=== PATIENT | female | born 1970 | race Caucasian/White ===

== ENCOUNTER 2019-09-08 09:11 | Outpatient (CLI) | payer OTHER, SELFPAY ==
--- NOTE | ~2019-09-08 | MM_ITS ---
EXAMINATION: MM screening [facility] BI w romi HISTORY: Screening mammogram TECHNIQUE: Craniocaudal and mediolateral oblique 3-D tomosynthesis images were obtained and synthetic 2-D images were generated. CAD analysis was submitted and interpreted. COMPARISON: 01/17/2018, 08/17/2016, 08/17/2014 bilateral digital screening mammogram examinations BREAST PARENCHYMAL COMPOSITION: There are scattered areas of fibroglandular density. FINDINGS: There is no evidence of suspicious mass, calcification, or architectural distortion to sugg est malignancy in either breast. There has been no suspicious interval change. IMPRESSION: 1. No mammographic evidence of malignancy. 2. Recommend routine screening mammography in one year. BI-RADS Category 1: Negative Reviewed, dictated and finalized at location A. OPERATOR
== END 2019-09-08 09:12 | disposition home or self-care (01) ==
PROVIDERS: PCP Family Medicine; Visit Provider Obstetrics & Gynecology
DX: Z12.31 Encounter for screening mammogram for malignant neoplasm of breast (principal)
CPT/HCPCS: 77063; 77067

== ENCOUNTER 2020-12-10 09:23 | Outpatient (CLI) | payer OTHER, SELFPAY ==
--- NOTE | ~2020-12-10 | CT_ITS ---
EXAMINATION: CT abdomen pelvis w con DATE: 12/10/2020 10:09 INDICATION: Ventral hernia TECHNIQUE: Computed tomography (CT) of the abdomen and pelvis was performed with 100 cc Omnipaque 350 intravenous contrast. Automated exposure control and iterative reconstruction technique were employe d. Exam dose: 1412.19 mGy-cm total exam DLP. COMPARISON: None. FINDINGS: Mild discoid atelectasis or scarring at the left lung base. The included lung bases are althea ar of infiltrate or consolidation. Cardiomegaly. No pericardial or pleural effusion. Status post cholecystectomy. No hepatic, splenic, pancreatic, and adrenal or renal space-occupying ma ss lesion is evident. No bile duct or pancreatic duct dilatation. Approximately 2 mm nonobstructing l eft renal calculus; otherwise no urinary tract calculus or hydroureteronephrosis. Abdominal aortic an d iliac calcifications without aneurysm. No intraperitoneal or retroperitoneal or pelvic mass lesion or adenopathy or ascites. The urinary bladder is unremarkable. Status post hysterectomy. Diverticulosis of the sigmoid and descending colon; no CT evidence of diverticulitis. No bowel obstru ction, bowel wall thickening, pneumatosis or intraperitoneal free air. Very wide ventral abdominal wall hernia without strangulation or obstruction. Diffuse idiopathic skeletal hyperostosis of the thoracolumbar spine. No suspicious osteolytic or oste oblastic lesions. IMPRESSION: Large widemouthed ventral abdominal wall hernia without strangulation or obstruction Status post cholecystectomy Approximately 2 mm nonobstructing left renal calculus Status post hysterectomy Reviewed, dictated and finalized at Location A. Reviewed, dictated and finalized at location A. IMPRESSION: Large widemouthed ventral abdominal wall hernia without strangulat ion or obstruction Status post cholecystectomy Approximately 2 mm nonobstructing left renal calculus Status post hysterectomy
[2020-12-10 10:07] LABS: Estimated Glomerular Filt Rate > 60
== END 2020-12-10 09:24 | disposition home or self-care (01) ==
PROVIDERS: PCP Nurse Practitioner Family; Visit Provider Student in an Organized Health Care Education/Training Program
DX: K43.9 Ventral hernia without obstruction or gangrene (principal); N20.0 Calculus of kidney; Z90.710 Acquired absence of both cervix and uterus; Z90.49 Acquired absence of other specified parts of digestive tract
CPT/HCPCS: 74177; Q9967

== ENCOUNTER 2021-01-26 09:02 | Outpatient (CLI) | payer OTHER, SELFPAY ==
--- NOTE | ~2021-01-26 | MM_ITS ---
EXAMINATION: MM screening [facility] BI w romi HISTORY: Screening TECHNIQUE: Craniocaudal and mediolateral oblique 3-D tomosynthesis images were obtained and synthetic 2-D images were generated. CAD analysis was submitted and interpreted. COMPARISON: Comparison to multiple prior studies sequentially, with oldest reviewed study dated 04/07. BREAST PARENCHYMAL COMPOSITION: There are scattered areas of fibroglandular density. FINDINGS: There is no evidence of suspicious mass, calcification, or architectural distortion to sugg est malignancy in either breast. There has been no suspicious interval change. IMPRESSION: 1. No mammographic evidence of malignancy. 2. Recommend routine screening mammography in one year. BI-RADS Category 1: Negative Reviewed, dictated and finalized at location A.
== END 2021-01-26 09:03 | disposition home or self-care (01) ==
LOC: ANHIMG 09:09
PROVIDERS: PCP Nurse Practitioner Family; Visit Provider Student in an Organized Health Care Education/Training Program
DX: Z12.31 Encounter for screening mammogram for malignant neoplasm of breast (principal)
CPT/HCPCS: 77063; 77067

== ENCOUNTER 2024-04-09 09:15 | Outpatient (CLI) | payer OTHER, SELFPAY ==
--- NOTE | 2024-04-09 09:32 | ECG_ITS ---
Test Date: 2024-04-09 09:43:03 Measurements Intervals [place] Rate: 68 P: 61 VA: 169 QRS: 55 QRSD: 108 T: 102 QT: 410 QTc: 438 Interpretive Statements SINUS RHYTHM POSSIBLE ANTERIOR MYOCARDIAL INFARCTION [30 ms Q WAVE IN V3/V4, OR R < 0.2 mV IN V4], PROBABLY OLD No previous ECG available for comparison Electronically Signed On 04-09-2024 12:11:13 CDT by Walt Jacobo M.D.
[2024-04-09 10:10] LABS: Anion Gap 8 mmol/L (4-12); Blood Urea Nitrogen 14 mg/dL (7-17); Calcium 8.7 mg/dL (8.4-10.2); Carbon Dioxide 33 mmol/L (22-30); Chloride 99 mmol/L (98-107); Estimated Glomerular Filt Rate > 60; Glucose 144 mg/dL (65-110); Potassium 3.3 mmol/L (3.4-5.0); Sodium 140 mmol/L (137-145)
== END 2024-04-09 09:16 | disposition home or self-care (01) ==
PROVIDERS: Anesthesiology; PCP Family Medicine; Visit Provider Obstetrics & Gynecology
DX: Z01.818 Encounter for other preprocedural examination (principal); E11.9 Type 2 diabetes mellitus without complications; R10.2 Pelvic and perineal pain
CPT/HCPCS: 36415; 80048; 86850; 86900; 86901; 93005

== ENCOUNTER 2024-04-10 04:31 | Day surgery (SDC) | payer OTHER, SELFPAY ==
[2024-03-31 15:03] VITALS: BMI 39.9
--- NOTE | 2024-03-31 16:08 | PC.NURSE ---
Report to the Outpatient Waiting Room, entrance under the green pavilion located off [facility], at 0600 on 04-10-24. Planned Procedure Time: 0730.? Time changes happen often and if your time is changed the preop area will call you the afternoon before. - You and your visitor will be asked to self-screen and do not enter if you have any COVID symptoms. Please call surgeon if you need to reschedule. - A mask is optional within the hospital at this time. Patients may have clear liquids (water, carbonated beverages, clear teas, apple juice) until 3 hours prior to surgery with a maximum of 20 ounces. 0430 - No food from midnight until time of surgery and no smoking - Infants may have breast milk until 4 hours before surgery, formula 6 hours prior to surgery. - Children will be allowed to drink immediately following surgery.? If applicable, please bring a bottle or sippy cup to assist with drinking. Juice, water, soda, and popsicles are readily available.? For infants on formula, please bring formula the day of surgery.? Pacifiers are allowed. Take only the following medications with a SIP of water on the morning of surgery: None DO NOT STOP ANY OF YOUR OTHER PRESCRIPTION MEDICATIONS PRIOR TO SURGERY EXCEPT THE FOLLOWING Medications to discontinue per physician: vitamins and supplements Date to take last dose: 04-07-24 Please no make-up, nail italian, hairspray, perfume, deodorant, or body powder the day of surgery.? No jewelry (including any body piercings) or valuables the day of surgery, leave them at home.? Please take a shower or bath the night before, or the morning of, surgery with an antibacterial soap.? Wear comfortable, loose fitting clothing.? Children are encouraged to wear pajamas. - Jewelry must be removed prior to entering the operating room.? Rings and piercings that are not removed may be cut off. - The hospital will not accept responsibility for valuables.? - Please leave all valuables, including medications, at home the day of surgery. If you are going home after surgery, a licensed straight truck driver must drive you home.? - NO public transportation without another adult if you receive anesthesia. - We recommend that an adult stay with you for 24 hours following discharge. - We also recommend that you do not drive, make important decision, drink alcoholic beverages, or take any drugs that were not prescribed by your health care provider for at least 24 hours after your discharge time. For Pediatric surgeries, we recommend two adults accompany the child home. Follow any additional instructions given to you from your surgeon. Telephone instructions given to Coty Garcia and asked if any additional questions and then verbalized understanding. Patient advised to call surgeon office or pre surgery nurse liaison [phone] if any additional questions.
--- NOTE | 2024-04-09 07:35 | PM.IMHP ---
H&P: HPI History of Present Illness Date/Time: 04/09/24 07:35 Chief Complaint: Pelvic pain ovarian cyst Narrative: 54-year-old female status post hysterectomy admitted for left salpingo-oophorectomy secondary to severe left-sided pelvic pain. Some an ongoing problem. She is unable to have intercourse finds this to be intolerable. Risks and benefits reviewed including exclusive , aspiration, bleeding, transfusion perforation injury to bowel bladder ureters, or other internal organs with need for laparotomy. She received the [employer] handout entitled laparoscopy. She had all questions answered. She asked [facility] Past Medical History Medical History Arriaga esophagus Diabetes High cholesterol History of blood clots Hypertension Surgical History Surgical History H/O eye surgery H/O ovarian cystectomy H/O: hysterectomy History of cholecystectomy Family History Family History Father , age 72 Diabetes mellitus Acute myocardial infarction Hypertension Mother , age 62 Breast cancer Sibling , age 44 Heart disease Sibling Diabetes mellitus Social History Social History Smoking packs per day: 1 Smoking cigarettes per day: 20.0 Years smoked: 25 Smoking pack-years: 25.00 Smoking status: Former smoker Tobacco type: cigarettes Second hand tobacco smoke exposure: No Smoking end date: 07/08/11 Alcohol intake: never Substance use: never Substance use type: does not use Living arrangements: with family Occupation/Education: unemployed Spiritual care concerns: No Meds Home Medications and Allergies Home Medications Medication Instructions Recorded Confirmed Type atorvastatin 10 mg tablet 40 mg PO DAILY 12/28/20 03/31/24 History latanoprost 0.005 % eye drops 1 drp EACH EYE DAILY 12/28/20 03/31/24 History metformin 500 mg tablet 500 mg PO BID 12/28/20 03/31/24 History vitamins A,C,I-wvda-incibo 4,296 1 cap PO BID 12/28/20 03/31/24 History mcg-226 mg-90 mg capsule (PreserVision AREDS) amitriptyline 25 mg tablet 50 mg PO HS 03/31/24 03/31/24 History docusate sodium 100 mg capsule 200 mg PO DAILY 03/31/24 03/31/24 History (Colace) omeprazole 40 mg capsule,delayed 40 mg PO DAILY 03/31/24 03/31/24 History release valsartan 320 mg tablet 320 mg PO DAILY 03/31/24 03/31/24 History Allergies Allergy/AdvReac Type Severity Reaction Status Date / Time codeine Allergy Severe TONGUE Verified 03/31/24 14:53 SWELLING/NAUSEA lisinopril Allergy Intermediate Cough Verified 03/31/24 14:53 adhesive Allergy Mild RASH Verified 03/31/24 14:53 erythromycin base Allergy Mild Swelling Verified 03/31/24 14:53 ibuprofen AdvReac Mild STOMACH Verified 03/31/24 16:18 PAIN Exam Const: General: cooperative, healthy appearing, comfortable and overweight Orientation/consciousness: oriented to person, oriented to place and oriented to time HENMT: Head: normal to inspection Resp: Effort & Inspection: normal respiratory effort Cardio: Rate: regular rate Rhythm: regular rhythm Heart sounds: S1 normal heart sound present and S2 normal heart sound present GI: Inspection: normal to inspection : External Female Exam: normal external appearance Speculum Exam - Vagina: normal appearance of the vagina Speculum Exam - Cervix: Cervix absent Bimanual exam- vagina & uterus: uterus absent Bimanual Exam- Adnexa, other: tender on the left Assessment and Plan Assessment and plan (1) Pelvic pain: Code(s): R10.2 - Pelvic and perineal pain Status: Acute Assessment and Plan: Proceed with laparoscopic left salpingo-oophorectomy
[2024-04-10 06:14] VITALS: BP 156/87; PULSE 69; RESP 18; TEMP 36.2; O2SAT 97
[2024-04-10] MEDS: ACETAMINOPHEN 500 MG TABLET 1000 MG PO (06:20)
[2024-04-10] MEDS: LACTATED RINGERS 1,000 ML 30 ML IV CONT (06:25)
[2024-04-10 06:30] LABS: Glucose Point of Care 107 mg/dl (65-105)
--- NOTE | 2024-04-10 06:56 | WPDHPUPDATE1 ---
History and Physical Update Update Date/Time: 04/10/24 06:56 History and Physical has been reviewed, including an updated exam of the patient. There are NO changes in the patient's condition. Risks, benefits, and alternatives have been discussed and questions answered. Patient agrees to proceed with procedure.
--- NOTE | 2024-04-10 07:14 | WPDHPUPDATE1 ---
History and Physical Update Update Date/Time: 04/10/24 07:14 History and Physical has been reviewed, including an updated exam of the patient. There are NO changes in the patient's condition. Risks, benefits, and alternatives have been discussed and questions answered. Patient agrees to proceed with procedure. case cancelled . await cardiac workup
== END 2024-04-10 07:25 | disposition home or self-care (01) ==
PROVIDERS: PCP Family Medicine; Visit Provider Obstetrics & Gynecology
PROC: (CPT 49320; principal; 2024-04-10 07:30)
DX: R10.2 Pelvic and perineal pain (principal); I10 Essential (primary) hypertension; E11.9 Type 2 diabetes mellitus without complications; E78.00 Pure hypercholesterolemia, unspecified; K22.70 Barrett's esophagus without dysplasia; Z53.9 Procedure and treatment not carried out, unspecified reason; Z79.84 Long term (current) use of oral hypoglycemic drugs; Z98.890 Other specified postprocedural states; Z90.49 Acquired absence of other specified parts of digestive tract; Z87.891 Personal history of nicotine dependence; Z80.3 Family history of malignant neoplasm of breast; Z82.49 Family history of ischemic heart disease and other diseases of the circulatory system
CPT/HCPCS: 82948; 99213; A9270; G0463; J7030; J7120

== ENCOUNTER 2024-10-24 10:54 | Outpatient (CLI) | payer OTHER, SELFPAY ==
--- NOTE | ~2024-10-24 | MM_ITS ---
EXAMINATION: MM screening [facility] BI w romi HISTORY: Screening TECHNIQUE: Craniocaudal and mediolateral oblique 3-D tomosynthesis images were obtained and synthetic 2-D images were generated. CAD analysis was submitted and interpreted. COMPARISON: 01/26/2021 and dating back to 08/17/2016 BREAST PARENCHYMAL COMPOSITION: The breasts are heterogeneously dense, which may obscure small masses . FINDINGS: Redemonstration of an intramammary lymph node within the upper outer quadrant of the right breast, stable and benign in appearance. Punctate calcifications detected bilaterally, stable and benign in appearance, dermal in origin. Stable parenchymal pattern without suspicious microcalcifications, architectural distortion, discrete masses or significant asymmetry. IMPRESSION: 1. No mammographic evidence of malignancy. 2. Recommend routine screening mammography in one year. BI-RADS Category 2: Benign finding(s). Reviewed, dictated and finalized at location A.
== END 2024-10-24 10:55 | disposition home or self-care (01) ==
PROVIDERS: PCP Obstetrics & Gynecology; Visit Provider Obstetrics & Gynecology
DX: Z12.31 Encounter for screening mammogram for malignant neoplasm of breast (principal)
CPT/HCPCS: 77063; 77067

== ENCOUNTER 2025-04-29 08:04 | Outpatient (CLI) | payer OTHER, SELFPAY ==
--- OUTSIDE RECORDS SUMMARY | 2025-04-07 11:30 | XMS_ITS | Encounter Summary ---
Author Organization [facility] Address [address] [place] [address] Phone Care Team Providers Care Principal Technical Specialist Name Role Phone Renu Scott MD Primary Care Provide r Reason for Visit * Reason Comments Stress/Nightmares * Behavioral Health (Routine) - Authorized Specialty Diagnoses / Procedures Referred By Reji morales Referred To Contact Licensed Clinical Mash Filter Operator / Behavioral Health Diagnoses Stress Procedures INDIVIDUAL THERAPY 45 Farzaneh De La Cruz LCSW [address] [place] [address] Phone: tel: fax: Referral ID Status Reason Start Date Expiration Date V isits Requested Visits Authorized [id number] Authorized 50 50 Encounter Details Date Type Department Care Team (Latest Contact Info) Description 04/07/2025 11:30 AM CDT Outpatient [facility] [address] [place] [address] Farzaneh De La Cruz PORCELAIN BUILDUP ASSISTANT [address] [place] [address] Grief (Primary Dx); Major depressive disorder, recurrent episode, severe with anxious distress Discharge Disposition: Discharged to home or Selfcare Social History Tobacco Use Types Packs/Day Years Used Date Smoking Tobacco: Never Smokeless Tobacco: Never Alcohol Use Standard Drinks/Week Comments No 0 (1 standard drink = 0.6 oz pur e alcohol) Sexually Active Control Partners Comments Yes Male Comments Unknown Sex and Gender Information Value Date Recorded Sex Assigned at Not on file Legal Sex Female 10:39 PM CDT Gender Identity Not on file Sexual Orientation Not on file documented as of this encounter Patient Instructions * Patient Instructions* Farzaneh De La Cruz, PORCELAIN BUILDUP ASSISTANT - 04/07/2025 11:30 AM CDT Crisis Resources In-Home, Mental Health Crisis Assessment [facility] Crisis Intervention Team?[phone] ([place]) [facility] Crisis Intervention Team?.. [phone] ([place]) [facility] Available for individual, family, or friend for in-home assessment of mental health issues Crisis Stabilization- Residential 24-hour or short-term supervised care at a facility. Available for persons 18 and older, who are experiencing a mental health crisis and do not need hospitalization. [facility] provides 24-hour short-term supervised care for persons aged 18 years and older experiencing an acute psychiatric crisis that does not require hospitalization. The average length of stay is 14 days. Admission to our crisis unit is voluntary; we only accept those individuals who choose to come to the unit. The facility is not prepared to work with persons who may be acutely suicidal or homicidal or who are experiencing serious medical problems or complications. The unit is staffed with nurses and behavioral health technicians and is not a hospital. During their stay on the unit, clients spend time in groups that meet four or more times a day. Thegroups provide education on topics helpful to individuals in crisis and clients are expected to attend and to participate actively. [facility] will provide a safe and supportive environment conducive to achieving stability. No alcohol or drugs are allowed in the unit. All medications are dispensed by [facility] nurses at appropriate times. No visitors are allowed on the unit but there is a phone available for clients to use and make calls. Persons may refer themselves for crisis residential/stabilization services and may be referred by hospitals, police departments, mental health agencies, social service agencies, and families. [facility] ?.....? .[phone] [facility] ?.???..[phone] Brief Crisis Phone Counseling Behavioral Health Response (BHR)?[phone] / [phone] ([facility] (Medicaid patients) ?..[phone] If non-Medicaid patient, the caller will be referred to a local service provider Emergency Sites for Mental Health Assessment and Treatment Behavioral Health Urgent Care [facility] (5yrs old to adult) [address] [address] Saturday - Saturday 9:00 am - 7:00 pm *Last patient seen at 6:00 pm Hospitals with Inpatient Psychological Services for Children and/or Adolescents and Adults [facility] (also has substance use treatment for adults) (adolescent, adult) [facility] [place] [address] [facility] (children, adolescents, adult) after business hours [phone] [address]. [facility] (children, adolescents, adult) [address] [place] [address] [facility] (also has substance use treatment for adults) (children, adolescents, adult) Phone: or [phone] [address] [place] [address] [facility] (adolescent, adult) Phone: or [phone] [address] [place] [address] Hospitals with Inpatient Psychological Services for Adults only [facility] (adult, geriatric) [address] [place] [address] [facility] (adult) [address] [place] [address] [facility] (adult) Phone: or [phone] [address] [place] [address] [facility] (geriatric only) Phone: or [phone] [address] [place] [address] [facility] (adult, geriatric) [address] [place], [place] Hotline [facility] Suicide Prevention Hotline: ?..?.3-203-436-TALK (3241) or [address] Sexual Assault Hotline?..?.?8-143-439-ROSCOMMON (6433) [facility] Sexual Assault Victims Support?..1-789.435.3402 [facility] Child Abuse Hotline?.1-744.881.7206 Domestic Violence Hotline?.?.4-242-597-S AFE (5266) [facility] Lifeline?.? Trans Lifeline?.? LGBTQ Partner Abuse & Sexual Assault Line . .1- 145.456.4279 [facility] including support for opioids or other substances.? Crisis Text Line???..?.?.? Text the word help to 270267 [facility] Text Line for service referrals.?.?. Text the word help to 877413 Warm Lines [facility]?1-623-032-79 [address] [place] [address] Warmline? 9a-9p/7 days a week [facility] Warmline?..2-400-224-2282 documented in this encounter Progress Notes * Farzaneh De La Cruz LCSW - 04/07/2025 11:30 AM CDT Images from the original note were not included. [facility] BEHAVIORAL HEALTH CLINICAL PROGRESS NOTE NAME: Coty Garcia AGE: 55 y.o. DATE OF : 1970 DATE OF SERVICE: 04/07/2025 START TIME: 11:30 am END TIME: 12:00 pm DIAGNOSIS: 1. Grief 2. Major depressive disorder, recurrent episode, severe with anxious distress Coty is a 53 year old female who has seen this clinician before for anxiety and depression. Coty recently lost her son, Terrence, to cancer right before 2022. Coty has a lot of feelings of guilt and feelings of what ifs. Coty also lost her brother in 2022 as well as a sister in law and a niece. The family has had two other losses on her 's side of the family. Her grandson who is 13 (her son's son) stays with them often and Coty worries about his emotional wellbeing. Coty has a history of anxiety and depression for which she has been treated through counseling, but currently has been prescribed amitriptyline. She has health issues which also may contribute to her stress and agitate the symptoms of grief. Today Coty processed thoughts and feelings related to: Grief Grandson Nightmares and waking with panic for about 1 month Reviewed the benefits of journaling. Clinician utilized person centered approach (active/reflective listening, summarization, open endedquestions, unconditional positive regard) to encourage pt disclosure of thoughts and feelings for insight building, to gain relief from distressing thoughts and feelings and to strengthen therapeuticrapport. TREATMENT PLAN: Goals Addressed This Visit's Progress Behavioral Health I want to be able to deal with Terrence's . (pt-stated) Improving Goal/Objective: Improve coping with grief related to the of Coty's son. Anticipated Time Frame for Goal Completion: 6 months Goal Reviewed with: patient Readiness to change: Ready to change Department associated with goal: [facility] Steps to achieve goal: 1. will attend at least 6 counseling sessions either individual and/or group 1x/mo, engaging in each session by verbalizing and processing thoughts and feelings related to grief and loss. 2. will report reduced feelings of guilt and resentment. 3. will identify and implement at least two outlets for grief and or coping skills to aid in managing problematic responses to grief. PROBLEM STATUS: Coty was seen today due to the following concerns: Depression: concentration difficulties decreased participation in activities of daily living emotionality (anger, crying, irritability) fatigue/loss of energy loss of interest/pleasure in activities low self esteem/self image mood regulation difficulties negative automatic thoughts/intrusive thoughts sleep difficulties (too much or too little) .. Grief Tearfulness Feelings of guilt Based upon the presenting problem the following treatment modalities were utilized: Cognitive Behavioral Therapy Supportive/Client Centered Therapy THERAPEUTIC INTERVENTIONS USED: This clinician provided therapeutic interventions for: Depression: increasing insight into current difficulties identifying and decreasing cognitive distortions/negative automatic thoughts contributing negatively to depressed mood and behavior identifying exercise/physical activity to be implemented at home identifying, verbalizing, and processing feelings effectively implementing strategies to improve self esteem/self worth increasing daily socialization and engagement in pleasant/pleasurable activities increasing knowledge and awareness of emotions/emotional functioning increasing nutrition education and altering daily diet learning positive coping skills and utilizing them at appropriate times/when needed consistent medication adherence. Grief education Life review Coty verbalized an understanding and responded well to interventions provided during treatment session. PROGRESS TOWARDS GOALS: Coty reported improvement of symptoms. MENTAL STATUS EXAM: Coty is open spontaneous. Affect is mood congruent. Mood is sad. Grieving but less emotional There is no history of suicidal ideation.. There is no history of homicidal ideation.. FUNCTIONAL ASSESSMENT: Can the patient perform Activities of Daily Living (ADL'S)?: Patient is able to complete ADL's independantly. TREATMENT RECOMMENDATIONS/FOLLOW UP: Recommendations for follow up treatment plan: Return for next available follow up appointment. FARZANEH DE LA CRUZ LCSW documented in this encounter Plan of Treatment Upcoming Encounters Date Type Department Care Team (Late st Contact Info) Description 04/29/2025 2:45 PM CDT Outpatient Clinic Visit [facility] Health Services [address] [place] [address] Farzaneh De La Cruz LCSW [address] [place] [address] documented as of this encounter Goals Goal Patient Goal Type Associated Problems Recent Progress Patient-Stated? Author I want to be able to deal with Terrence's . Behavioral Health Improving(07/2024 11:39 AM CDT) Yes Farzaneh De La Cruz LCSW Note: Goal/Objective: Improve coping with grief related to the of Coty's son. Anticipated Time Frame for Goal Completion: 6 months Goal Reviewed with: patient Readiness to change: Ready to change Department associated with goal: [facility] Steps to achieve goal: 1. will attend at least 6 counseling sessions either individual and/or group 1x/mo, engaging in each session by verbalizing and processing thoughts and feelings related to grief and loss. 2. will report reduced feelings of guilt and resentment. 3. will identify and implement at least two outlets for grief and or coping skills to aid in managing problematic responses to grief. documented as of this encounter Visit Diagnoses Diagnosis Grief- Primary Adjustment disorder with depressed mood Major depressive disorder, recurrent episode, severe with anxious distress documented in this encounter Care Teams Principal Technical Specialist Relationship Specialty Start Date End Date Renu Scott MD 2 [facility] [address] [address] PCP - General Family Medicine 12/16/23 documented as of this encounter
--- OUTSIDE RECORDS SUMMARY | 2025-04-08 08:06 | XMS_ITS | Encounter Summary ---
Author Organization [facility] Address [address] [place] [address] Care Team Providers Care Lawyers Name Role Phone Aldo Kan MD Unavailable [phone] Elo Mcmahan NP Unavailable [phone] Renu Scott MD Primary Care Provide r Reason for Visit * Reason Onset Date Comments Medical Question/Miscellaneous 03/29/2025 Call Back 03/29/2025 Encounter Details Date Type Department Care Team (Late st Contact Info) Description 03/29/2025 Telephone [facility] Primary Care at [address] [place] [address] Renu Scott MD [address] [place] [address] [address] [place] [address] Medical Question/Miscellaneous ; Call Back Social History Tobacco Use Types Packs/Day Years Used Date Smoking Tobacco: Former Cigarettes 1 32 0 07/08/1981 - 07/07/2013 Passive Smoke Exposure: Past Smokeless Tobacco: Never Comments:Smoking History Pac ks/day: 1 Packs Alcohol Use Standard Drinks/Week Comments No 0 (1 standard drink = 0.6 oz pur e alcohol) PHQ-2 Answer Date Recorded PHQ-2 Total Score (If total score is 3 or more points, staff should administer the PHQ-9) 0 01/27/2025 AUDIT-C Answer Date Recorded Frequency of Alcohol Consumption Not on file 03/01/2025 Q2: How many drinks containi ng alcohol do you have on a typical day when you are drinking? Patient does not drink Frequency of Binge Drinking Not on file 02/06 Personal Safety Answer Date Recorded Have you ever been in or are you currently in a harmful physical or emotional relationship or is someone making you feel afraid or unsafe? Denies 03/03/2025 Comments No Sex and Gender Information Value Date Recorded Sex Assigned at Not on file Legal Sex Female 8:50 AM PR MANAGER Gender Identity Not on file Sexual Orientation Not on file documented as of this encounter Ordered Prescriptions Prescription Sig Dispense Quantity Refills Last Filled Start Date End Date melatonin 5 mg tablet Take 1 tablet (5 mg total) by mouth nightly for 5 days 5 tablet 03/31/2025 documented in this encounter Miscellaneous Notes * Telephone Encounter - Gracie Quarles MA - 03/31/2025 2:33 PM CDT Coty has been informed. * Telephone Encounter - Renu Scott MD - 03/31/2025 2:27 PM CDT I sent 5 tablets. It would be safe to try one a few nights before the sleep study to see if it works. * Telephone Encounter - Ina Lopez - 03/31/2025 11:23 AM CDT Call Back Caller???s Concern: Patient called back returning call. Relayed provider message and patient statesshe will try melatonin. Please advise Does message need to be routed? Yes-Action Needed * Telephone Encounter - Gracie Quarles MA - 03/31/2025 7:25 AM CDT Attempted to contact Coty with no answer. LMOM to contact the office back. If Coty calls back, please relay message from Dr. Alva * Telephone Encounter - Renu Scott MD - 03/30/2025 1:37 PM CDT Many sleep aids can lower the drive to breath and she is already going for a sleep study to assess for pauses in her sleep. Would she like to give melatonin a try? Or does she want to take the risk of something stronger such as a one time tablet of ambien? * Telephone Encounter - Terri Jones - 03/29/2025 1:10 PM CDT Medical Question/Miscellaneous Caller???s Concern: Patient has a sleep study on 04/08/25 and has trouble sleeping if she's not in her own bed, she was told to call and ask her PCP for a one time sleep medication to take for that night. Please advise. [id number] [place], [place] - [address] [facility] [phone] Does message need to be routed? Yes-Action Needed documented in this encounter Plan of Treatment Not on file documented as of this encounter Visit Diagnoses Not on filedocumented in this encounter Care Teams Lawyers Relationship Specialty Start Date End Date Renu Scott MD 2 [facility] [address] [address] PCP - General Family Medicine 11/26/23 Aldo Kan MD Consulting Physician Cardiology 10/09/17 Elo Mcmahan NP Registered Nurse Pulmonary Disease 12/13/21 documented as of this encounter
--- OUTSIDE RECORDS SUMMARY | 2025-04-08 08:06 | XMS_ITS | Encounter Summary ---
Author Organization [facility] Care Team Providers Care Produce Team Lead Name Role Phone Renu Scott MD Primary Care Provide r Encounter Details Date Type Department Care Team (Latest Contact Info) Description 04/07/2025 Travel Social History Tobacco Use Types Packs/Day Years [...] on file documented as of this encounter Plan of Treatment Upcoming Encounters Date Type Department Care Team (Late st Contact Info) Description 04/29/2025 2:45 PM CDT Outpatient Clinic Visit [facility] Health Services [address] [place] [address] Jennifer Galdamez LCSW [address] [place] [address] documented as of this encounter Goals Goal Patient Goal Type Associated Problems Recent Progress Patient-Stated? Author I want to be able to deal with Terrence's . Behavioral Health Improving(07/2024 11:39 AM CDT) Yes Jennifer Galdamez LCSW Note: Goal/Objective: Improve coping with grief related to the of Coty's son. Anticipated Time Frame for Goal Completion: 6 months Goal Reviewed with: patient Readiness to change: Ready to change Department associated with goal: [facility] Steps to achieve goal: [...] on filedocumented in this encounter Care Teams Produce Team Lead Relationship Specialty Start Date End Date Renu Scott MD [address] [place] [address] DR [address] [place], [place] [address], [place] [address] PCP - General Family Medicine 12/16/23 documented as of this encounter
--- OUTSIDE RECORDS SUMMARY | 2025-04-08 08:06 | XMS_ITS | Clinical Summary ---
Author Organization [facility] Address [address] [place] [address] Phone Care Team Providers Care Cray Fishing Hand Name Role Phone Renu Scott MD Primary Care Provide r Medications amitriptyline (ELAVIL) 25 MG Tablet Take 25 mg by mouth nightly. Active Active Problems Problem Noted Date Diagnosed Date Grief 08/27/2023 Major depressive disorder, r ecurrent episode, severe with anxious distress 01/27/2018 Encounters Date Type Department Care Team Description 04/07/2025 11:30 AM CDT Outpatient Clinic Visit [facility] Services [address] [place] [address] Jennifer Galdamez LCSW Grief (Primary Dx); Major depressive disorder, recurrent episode, severe with anxious distress Discharge Disposition: Discharged to home or Selfcare 04/07/2025 Travel from Last 3 Months Family History Medical History Relation Name Comments Heart Attack Brother x3-1 Relation Name Status Comments Brother x3-1 Father Mother Social History Tobacco Use Types Packs/Day Years Used Date Smoking Tobacco: Never Smokeless Tobacco: Never Tobacco Cessation:Counseling Given: Not Answered Alcohol Use Standard Drinks/Week Comments No 0 (1 standard drink = 0.6 oz pur e alcohol) Sexually Active Control Partners Comments Yes Male Comments Unknown Sex and Gender Information Value Date Recorded Sex Assigned at Not on file Legal Sex Female 10:39 PM CDT Gender Identity Not on file Sexual Orientation Not on file Plan of Treatment Upcoming Encounters Date Type Department Care Team (Late st Contact Info) Description 04/29/2025 2:45 PM CDT Outpatient Clinic Visit [facility] [address] [place] [address] Jennifer Galdamez LCSW [address] [place] [address] Health Maintenance Due Date Last Done Comments Hepatitis C Virus (HCV) Screening 1970 Mammogram 1970 Hepatitis B Immunization (1 of 3 - 19+ 3-dose series) 01/05/1988 Pap Smear 1990 Cervical Cancer Screening (CCS) 1999 HPV/Cotest 1999 Cologuard 2014 Immunochemical Fecal Occult Blood 2014 Pneumococcal Immunization (5 0+ years) (1 of 1 - PCV) 2019 Zoster Immunization (1 of 2) 2019 Influenza Immunization (#1) 2025 SARS-COV-2 Immunization ( - season) 2025 Colonoscopy 04/12/2030 04/12/2020 Colorectal Cancer Screening 04/12/2030 Respiratory Syncytial Virus (RSV) Immunization (Adult) (1 - 1-dose 75+ series) 01/05/2044 DTaP/Tdap/Td Immunization Discontinued 2018, 12/29/2008 TdaP Immunization Completed 02/23/2019, 12/29/2008 Human Papillomavirus (HPV) Immunization Aged Out No longer eligible based on patient's age to complete this topic Meningococcal Immunization (ACWY) Aged Out No longer eligible based on patient's age to complete this topic Rotavirus Immunization Aged Out No lo nger eligible based on patient's age to complete this topic Goals Goal Patient Goal Type Associated Problems [...] Ready to change Department associated with goal: [facility] Steps to achieve goal: [...] aid in managing problematic responses to grief. Insurance [facility] Care Teams Cray Fishing Hand Relationship Specialty Start Date End Date Renu Scott MD [address] [facility] [place] [address] PCP - General Family Medicine 12/16/23
--- OUTSIDE RECORDS SUMMARY | 2025-04-08 08:06 | XMS_ITS | Clinical Summary ---
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 changed her vitamin-D. She has follow-up with Dr. Reynolds in 6 weeks. Recommended that she bring up pain with him Assessment & Plan (01/11/2020 11:18 AM CDT): Labs ordered, new Rx sent, use as directed. Go to nearest ER if S/Sxs worsen. Martha for colonoscopy at end of month, keep martha appt. Assessment & Plan (01/31/2017 8:20 AM CDT): She has a hx of srinivasan's esophagitis. She has chronic abdominal bloating and pain. She already sees GI and is due to see him. I told her she needs to discuss with her GI doctor. Diabetic polyneuropathy 02/03/2014 Overview (10/11/2016): Diabetic polyneuropathy Assessment & Plan (12/28/2021 1:52 PM CDT): referr placed to podiatry for eval Otherwise continue current regimen - can consider starting gabapentin Assessment & Plan (01/17/2018 1:26 PM CDT): Diabetes is unchanged. Continue current treatment regimen. Diabetes will be reassessed in 6 months. Has neuropathy in feet and hands Last A1C October 2017-6.3 Continue Metformin Type 2 diabetes mellitus wit hout complication, without long-term current use of insulin 11/21/2013 Overview (10/11/2016): Diabetes Assessment & Plan (01/27/2025 2:26 PM CDT): The patient was counseled on a heart-healthy, diabetic-friendly diet, as well as life-style modification. Education provided on the diagnosis and risks of the disease. We will continue to monitor routine labs. Additionally, She was counseled on routine diabetic eye exams, foot exams, and other preventive care. Most recent A1c on file: Lab Results Component Value Date HGBA1C 6.3 (H) 01/20/2025 Continue regimen of metformin 500mg bid Mounjaro 0.5mg weekly Continue statin and ARB Orders: Hemoglobin A1c; Future Albumin Creatinine Ratio, Urine; Future Assessment & Plan (11/09/2024 11:03 AM CDT): The patient was counseled on a heart-healthy, diabetic-friendly diet, as well as life-style modification. Education provided on the diagnosis and risks of the disease. We will continue to monitor routine labs. Additionally, She was counseled on routine diabetic eye exams, foot exams, and other preventive care. Most recent A1c on file: Lab Results Component Value Date HGBA1C 6.7 (H) 11/05/2024 Continue regimen of metformin 500mg bid Mounjaro added to help with DM and weight loss Continue statin and ARB Assessment & Plan (09/21/2024 3:02 PM CDT): The patient was counseled on a heart-healthy, diabetic-friendly diet, as well as life-style modification. Education provided on the diagnosis and risks of the disease. We will continue to monitor routine labs. Additionally, She was counseled on routine diabetic eye exams, foot exams, and other preventive care. Most recent A1c on file: Lab Results Component Value Date HGBA1C 6.6 (H) 05/29/2024 Continue regimen of metformin 500mg bid Continue statin and ARB A1c ordered today F/u in 6 months Assessment & Plan (06/06/2024 7:33 PM ROTARY SOIL STABILIZER OPERATOR): The patient was counseled on a heart-healthy, diabetic-friendly diet, as well as life-style modification. Education provided on the diagnosis and risks of the disease. We will continue to monitor routine labs. Additionally, She was counseled on routine diabetic eye exams, foot exams, and other preventive care. Most recent A1c on file: Lab Results Component Value Date HGBA1C 6.6 (H) 05/29/2024 Continue regimen of metformin 500mg bid Continue statin and ARB A1c ordered today F/u in 6 months Assessment & Plan (11/26/2023 2:34 PM CDT): The patient was counseled on a heart-healthy, diabetic-friendly diet, as well as life-style modification. Education provided on the diagnosis and risks of the disease. We will continue to monitor routine labs. Additionally, She was counseled on routine diabetic eye exams, foot exams, and other preventive care. Most recent A1c on file: Lab Results Component Value Date HGBA1C 5.9 (H) 10/30/2022 Continue regimen of metformin 500mg bid Continue statin and ARB A1c ordered today F/u in 6 months Assessment & Plan (05/27/2023 1:27 PM ROTARY SOIL STABILIZER OPERATOR): Improved. Pt is on metformin xr 500mg daily. Today A1c was 6.1%. Assessment & Plan (09/30/2022 2:34 PM CDT): Diabetes has been stable. A1cs have been in the 60s. Will have her check labs and reschedule her office visit that she had regularly scheduled next week for 2-3 weeks out for recheck on chronic conditions Assessment & Plan (02/04/2022 11:31 AM CDT): Stable. Reviewed labs. Renewed metformin. F/u 6 months Assessment & Plan (01/16/2022 10:16 AM CDT): Due for lab work. Continue metformin. Encouraged exercise low carb diet Assessment & Plan (12/13/2021 3:51 PM CDT): Stable, well controlle d- cotninue follow up with endo Assessment & Plan (10/11/2021 10:31 AM CDT): Chronic for about 10 years. In good control with A1c of 6.1% on Metformin Plan: Patient to work on weight loss Continue Metformin Check A1c every 3-6 month and try to keep < 7% Assessment & Plan (09/27/2021 8:20 AM CDT): Will refer to endocrinology. Has been controlled. Assessment & Plan (07/05/2021 12:11 PM ROTARY SOIL STABILIZER OPERATOR): Diabetes has been stable. Recheck hemoglobin A1c today. Assessment & Plan (01/03/2021 11:06 AM CDT): Stable. Hemoglobin A1c is 6.2%. Continue on metformin. Encouraged low carb diet and exercise Assessment & Plan (12/01/2020 5:20 PM CDT): Due for lab work prior to office visit end of December. Assessment & Plan (08/04/2020 11:16 AM ROTARY SOIL STABILIZER OPERATOR): Diabetes is stable. Continue current treatment regimen. Dietary recommendations for ADA diet. Regular aerobic exercise. Reminded to get yearly retinal exam. Diabetes will be reassessed in 6 months Orders for repeat hga1c today. Assessment & Plan (02/04/2020 9:48 AM CDT): Diabetes is improving with lifestyle modifications. Discussed foot care. Reminded to get yearly retinal exam. Medication changes per orders. Diabetes will be reassessed in 6 months Has decreased metformin to 500mg daily. Assessment & Plan (01/11/2020 11:19 AM CDT): Well-controlled, cut back on metformin 500mg bid, decreased to 500mg qhs. Notify provider if this has helped with the generalized abd. Pain/discomfort and your upcoming appt. Low carbs diet recommended. Assessment & Plan (08/06/2019 11:19 AM ROTARY SOIL STABILIZER OPERATOR): Diabetes is unchanged. Continue current treatment regimen. Dietary recommendations for ADA diet. Regular aerobic exercise. Reminded to get yearly retinal exam. Diabetes will be reassessed in 6 months. Assessment & Plan (02/03/2019 11:15 AM CDT): Issues reviewed with her: low cholesterol diet, weight control and daily exercise discussed, home glucose monitoring emphasized, annual eye examinations at Ophthalmology discussed and glycohemoglobin and other lab monitoring discussed Currently controlled. Continue metformin. . Assessment & Plan (08/05/2018 11:47 AM ROTARY SOIL STABILIZER OPERATOR): Diabetes is improving with treatment. Continue current treatment regimen. Diabetes will be reassessed in 6 months. Assessment & Plan (06/14/2018 12:38 PM ROTARY SOIL STABILIZER OPERATOR): Diabetes is improving with treatment. Continue current treatment regimen. Diabetes will be reassessed in 3 months. Will check A1C Pt. Reports neuropathy improving Reports fasting blood sugars in 90-100's Continue Metformin 500 mg twice a day Assessment & Plan (01/27/2018 9:18 AM CDT): Diabetes is improving with treatment. Continue current treatment regimen. Regular aerobic exercise. Diabetes will be reassessed in 6 months Repeat hga1c and microalbumin today. Assessment & Plan (10/15/2017 9:00 AM CDT): Last hga1c was 6.1%. Continue metformin. Will recheck hga1c today. She has f/u in December Assessment & Plan (10/04/2017 6:01 PM CDT): The blood sugar is controlled. Continue current regimen for now Assessment & Plan (07/18/2017 12:11 PM ROTARY SOIL STABILIZER OPERATOR): Diabetes is improving with treatment. Continue current treatment regimen. Dietary recommendations for ADA diet. Regular aerobic exercise. Discussed foot care. Diabetes will be reassessed in 6 months. Assessment & Plan (01/31/2017 8:18 AM CDT): Diabetes is stable. Continue current treatment regimen. Reminded to bring in blood sugar diary at next visit. Regular aerobic exercise. Diabetes will be reassessed in 6 months. Class 3 severe obesity due t o excess calories with serious comorbidity and body mass index (BMI) of 40.0 to 44.9 in adult 11/21/2013 Overview (01/11/2020): Assessment & Plan (01/27/2025 2:26 PM CDT): Assessment & Plan (11/05/2024 9:54 PM CDT): She was counseled on the importance of maintaining a healthy weight and the risks of obesity. Weight loss recommended. Encourage 150min/ week of exercise Encourage 1500 calories in a day for weight loss Assessment & Plan (09/21/2024 4:53 PM CDT): She was counseled on the importance of maintaining a healthy weight and the risks of obesity. Weight loss recommended. Assessment & Plan (06/08/2024 3:11 PM ROTARY SOIL STABILIZER OPERATOR): She was counseled on the importance of maintaining a healthy weight and the risks of obesity. Weight loss recommended. Assessment & Plan (11/26/2023 4:10 PM CDT): She was counseled on the importance of maintaining a healthy weight and the risks of obesity. Weight loss recommended. Assessment & Plan (02/16/2022 8:51 AM CDT): BMI Follow-up includes: exercise counseling. Assessment & Plan (02/08/2022 2:24 PM CDT): Healthy, low carbohydrate lifestyle and exercise for 150min/week recommended Assessment & Plan (02/04/2022 11:28 AM CDT): BMI Follow-up includes: education provided. Assessment & Plan (01/16/2022 10:21 AM CDT): BMI Follow-up includes: exercise counseling. Assessment & Plan (12/28/2021 1:51 PM CDT): BMI Follow-up includes: nutrition counseling and exercise counseling. Assessment & Plan (12/13/2021 3:51 PM CDT): BMI Follow-up includes: nutrition counseling and exercise counseling. Assessment & Plan (09/27/2021 8:35 AM CDT): BMI Follow-up includes: exercise counseling. Assessment & Plan (01/03/2021 11:06 AM CDT): BMI Follow-up includes: nutrition counseling and exercise counseling. Assessment & Plan (12/01/2020 5:19 PM CDT): BMI Follow-up includes: exercise counseling. Assessment & Plan (08/10/2020 6:00 PM ROTARY SOIL STABILIZER OPERATOR): This issues definitely adding to the patient the complaints and symptoms the. She will definitely benefit from aggressive approach for weight loss. Assessment & Plan (01/15/2020 1:03 PM CDT): Healthy, low carbohydrate lifestyle and exercise for 150min/week recommended Assessment & Plan (01/11/2020 11:19 AM CDT): Weight reduction, daily exercise and dietary modifications recommended. Assessment & Plan (08/06/2019 11:20 AM ROTARY SOIL STABILIZER OPERATOR): BMI Follow-up includes: exercise counseling. Assessment & Plan (07/18/2017 12:12 PM ROTARY SOIL STABILIZER OPERATOR): BMI Follow-up includes: nutrition counseling and exercise counseling. Assessment & Plan (01/31/2017 8:14 AM CDT): BMI Follow-up includes: nutrition counseling. Hypertension, essential 11/21/2013 Overview (10/12/2016): Hypertension Assessment & Plan (01/27/2025 2:26 PM CDT): Bp in the office today BP Readings from Last 1 Encounters: 01/27/25 124/70 Continue current regimen of valsartan 160mg daily and metoprolol 25mg daily Recommend DASH diet, heart-healthy lifestyle, exercise. Discussed the risks of hypertension. Assessment & Plan (09/21/2024 3:02 PM CDT): Bp in the office today BP Readings from Last 1 Encounters: 09/21/24 130/74 Continue current regimen of valsartan 160mg daily and metoprolol 25mg daily Recommend DASH diet, heart-healthy lifestyle, exercise. Discussed the risks of hypertension. F/u in 6 months Assessment & Plan (06/08/2024 2:36 PM ROTARY SOIL STABILIZER OPERATOR): Bp in the office today BP Readings from Last 1 Encounters: 06/08/24 136/74 Continue current regimen of valsartan 160mg daily and metoprolol 25mg daily Recommend DASH diet, heart-healthy lifestyle, exercise. Discussed the risks of hypertension. F/u in 3 months Assessment & Plan (11/26/2023 2:33 PM CDT): Bp in the office today BP Readings from Last 1 Encounters: 11/26/23 130/74 Continue current regimen of valsartan 160mg daily and metoprolol 25mg daily Recommend DASH diet, heart-healthy lifestyle, exercise. Discussed the risks of hypertension. F/u in 6 months Assessment & Plan (05/27/2023 1:50 PM ROTARY SOIL STABILIZER OPERATOR): Stable on current medication. Continue valsartan, metoprolol XL as ordered. May follow up in 6 months Assessment & Plan (01/15/2023 11:42 AM CDT): Blood pressures improved. She started taking the valsartan around January 08. She is brought some home readings which are scanned in [employer]. If 1st they were still running 140 over 70s to 80s. The last couple of days they are running better 120/70 and 130/70. Today in office she is back up to 140/80. I told her to keep checking it at home and distended some readings in another week or 2. We will not make any medication changes today seeing as we have seen some improvement in her blood pressure. Continue her on valsartan 160. She also has a follow-up scheduled in a couple months for a physical Assessment & Plan (11/06/2022 11:15 AM CDT): Will discontinue losartan. Start valsartan 160mg daily. Have her f/u in 6-8 weeks for recheck. Assessment & Plan (09/30/2022 2:33 PM CDT): Not at goal today. She is going to buy herself a new blood pressure cuff. Will have her check labs. However check blood pressures at home and send us some readings. We may need to consider changing losartan or increasing metoprolol. Assessment & Plan (01/16/2022 10:14 AM CDT): Stable/ Improved. Blood pressure is adequately controlled on current medication. We will not make any medication changes today. Will have her follow-up in 6 months for continued monitoring and management Assessment & Plan (12/28/2021 1:52 PM CDT): Just barely at goal - continue current regimen Blood Pressure Follow-up: Lifestyle modifications education provided on increase physical activity and weight reduction. Assessment & Plan (12/13/2021 3:52 PM CDT): Stable/ Improved. Blood pressure is adequately controlled on current medication. We will not make any medication changes today. Will have her follow-up in 6 months for continued monitoring and management Assessment & Plan (07/05/2021 12:10 PM ROTARY SOIL STABILIZER OPERATOR): Stable/ Improved. Blood pressure is adequately controlled on current medication. We will not make any medication changes today. Will have her follow-up in 6 months for continued monitoring and management Assessment & Plan (01/03/2021 11:07 AM CDT): Stable/ Improved. Blood pressure is adequately controlled on current medication. We will not make any medication changes today. Will have her follow-up in 6 months for continued monitoring and management Assessment & Plan (08/04/2020 10:09 AM ROTARY SOIL STABILIZER OPERATOR): Stable/ Improved. Blood pressure is adequately controlled on current medication. We will not make any medication changes today. Will have her follow-up in 6 months for continued monitoring and management Assessment & Plan (02/04/2020 9:47 AM CDT): Blood pressure is adequately controlled on current medication. We will not make any medication changes today. Will have her follow-up in 6 months for continued monitoring and management Assessment & Plan (08/06/2019 11:32 AM ROTARY SOIL STABILIZER OPERATOR): Blood pressure is adequately controlled on current medication. We will not make any medication changes today. Will have her follow-up in 6 months for continued monitoring and management Assessment & Plan (02/03/2019 11:16 AM CDT): Hypertension is improving with treatment. Continue current medications. Blood pressure will be reassessed 6 months. Assessment & Plan (08/05/2018 11:45 AM ROTARY SOIL STABILIZER OPERATOR): Hypertension is improving with treatment. Weight loss. Continue current medications. Blood pressure will be reassessed Six months. Severe obstructive sleep apnea 10/05/2013 Overview (10/12/2016): AMY (obstructive sleep apnea) Assessment & Plan (02/28/2018 9:32 AM CDT): Pt. Schedule for another sleep study by pulmonary doctors Referral was made to Dr. Washington on 01/17/18. There office has not contacted her. Paper given to patient to f/u and call Pt. Does use O2 at night Has low Iron sat via labs Pt. Unable to do CPAP related to being claustophobic Pt. States that she does use Oxygen at night Last Sleep Study 2014- IMPRESSION The above polysomnogram revealed evidence of: 1. Extremely poor sleep efficiency. 2. Claustrophobia and poor tolerance of positive pressure therapy. 3. Intolerance to CPAP therapy. Bilevel therapy was found to be effective. Despite significant improvement, no pressure was found to be optimal. 4. In light of the patient's severity and symptoms of claustrophobia, the patient is recommended to undergo desensitization therapy and undergo further titration to determine her optimal pressures. Would benefit from going through this with her comorbidities Assessment & Plan (01/19/2018 6:17 PM CDT): Pt. Unable to do CPAP related to being claustophobic Pt. States that she does use Oxygen at night Last Sleep Study 2014- IMPRESSION The above polysomnogram revealed evidence of: 1. Extremely poor sleep efficiency. 2. Claustrophobia and poor tolerance of positive pressure therapy. 3. Intolerance to CPAP therapy. Bilevel therapy was found to be effective. Despite significant improvement, no pressure was found to be optimal. 4. In light of the patient's severity and symptoms of claustrophobia, the patient is recommended to undergo desensitization therapy and undergo further titration to determine her optimal pressures. Would benefit from going through this with her comorbidities Assessment & Plan (10/04/2017 5:52 PM CDT): The this has not not been treated. Patient is very claustrophobic cannot tolerate any kind of CPAP machine. Resolved Problems Problem Noted Date Diagnosed Date Resolved Date Encounter to establish care 11/26/2023 06/06/2024 Assessment & Plan (11/26/2023 6:47 AM CDT): Med list and problem list reviewed Preoperative clearance 01/15/202306/06 Assessment & Plan (01/15/2023 11:43 AM CDT): Cleared for cataract surgery. Already has cardiac clearance. Class 2 obesity with body ma ss index (BMI) of 39.0 to 39.9 in adult 09/30/2022 11/26/2023 Assessment & Plan (11/16/2022 8:45 AM CDT): Weight is stable. Encouraged to work on exercise, low carb diet. Assessment & Plan (09/30/2022 4:00 PM CDT): Weight is stable. Encouraged to work on exercise, low carb diet. Abnormal nuclear stress test 04/06/2022 09/30/2022 Abnormal stress test 03/28/2022 023 Internal hemorrhoids 04/26/2020 021 Assessment & Plan (04/26/2020 11:44 AM CDT): Using prescription hemorrhoid cream and doing well. She said she is almost out of cream. Will call in another tube to use prn. She was instructed to start fiber but has not started this yet. She plans to go to store on Saturday and start these. Urinary frequency 01/11/2020 07/05/2021 Assessment & Plan (01/03/2021 11:08 AM CDT): Differentials include stress incontinence will patient is also having urinary and bladder pain. This sounds like interstitial cystitis. I briefly discussed trying amitriptyline at bedtime. Patient is going to go ahead and try the Myrbetriq that was prescribed by her labor contractor. Will place a referral to Urology and information, handout was given on interstitial cystitis Assessment & Plan (12/01/2020 5:25 PM CDT): Send for urine culture. Having bladder spasms, resolved with prednisone last time this occurred. Will repeat medrol dose bry. Septra ds bid x 3 days for possible uti Assessment & Plan (01/11/2020 11:17 AM CDT): UA neg, urine culture sent. Bilateral lower abdominal cramping 08/28/2019 01/03/2021 Assessment & Plan (04/26/2020 11:46 AM CDT): No issues recently since BM's have become more regular. Assessment & Plan (08/28/2019 10:16 AM ROTARY SOIL STABILIZER OPERATOR): Pt having occasional lower abdominal cramping most of the time prior to BM's. Pt says she has been told she has IBS in the past. Bright red blood per rectum 08/28/2019 07/05/2021 Assessment & Plan (04/26/2020 11:44 AM CDT): Recent colonoscopy showed int hemorrhoids as likely cause of bleeding. Rx hemorrhoid cream working well and no recent bleeding. Continue this prn. Assessment & Plan (08/28/2019 10:19 AM ROTARY SOIL STABILIZER OPERATOR): Occasionally seeing small amount of bright red blood on toilet paper after BM. Likely due to hemorrhoids. Pt hasn't ever had screening colonoscopy so will have this setup today. Nausea 08/28/2019 02/04/2020 Assessment & Plan (01/11/2020 11:17 AM CDT): Rx given, use as directed. Assessment & Plan (08/28/2019 10:20 AM ROTARY SOIL STABILIZER OPERATOR): No vomiting. Has had EGD in the past that has no explanation of nausea. Could be delayed gastric emptying from diabetes. Discussed importance of healthy eating, weight loss, and following low fat diet. Instructed to eat 5 small meals daily. Pt verbalized understanding. Trigger finger, acquired 08/06/2019 GERD (gastroesophageal reflux disease) 01/28/2019 08/06/2019 Overview (01/28/2019): Added automatically from request for surgery [id number] Assessment & Plan (02/27/2019 11:10 AM CDT): Doing well on pantoprazole 40mg QD. Discussed GERD diet and importance of following this. Will have her try 40mg every other day to see how she does. If symptoms persist, she was advised to go back to QD. Pt's biopsy of esophagus was negative for Srinivasan's. Will f/u in 6 months to see how she is doing. At this time, if she is able to do pantoprazole every other day, we will discuss placing her on ranitidine or pepcid instead. Assessment & Plan (01/28/2019 11:24 AM CDT): Pt is currently taking omeprazole 40mg BID and having daily GERD symptoms for about 3 weeks. Given current symptoms and history of Srinivasan's will have her setup for EGD. Discussed importance of following GERD diet and weight loss and she was given educational handout on the GERD diet. I switched patient from omeprazole BID to pantoprazole BID. I would really like to try and get her off of PPI's or at least get her down to QD given that she has been on them for about 7-8 years. We will see what EGD shows and re-evaluate in 1 month. Acute pain of left knee 08/05/201807/10 Assessment & Plan (08/05/2018 10:59 AM ROTARY SOIL STABILIZER OPERATOR): Has been ongoing for 3 months after fall. No swelling. Exam negative. Will refer to ortho for further evaluation Injury of left wrist 06/13/2018 019 Left wrist pain 05/20/2018 08/05/2018 Assessment & Plan (05/20/2018 10:01 AM ROTARY SOIL STABILIZER OPERATOR): S/p fall last week. Swollen. Will obtain x-ray. Recommended wrist brace. Elevation, ice as needed. Ibuprofen twice daily. Encounter for psychiatric assessment 03/12/2018 02/03/2019 Assessment & Plan (03/12/2018 10:47 AM CDT): Psychiatric assessment completed in the office today. Multiple skin nodules 02/28/20182020 Assessment & Plan (02/28/2018 9:30 AM CDT): Multiple firm nodules under the skin on arms, legs, and torso Will refer to Derm for evaluation Iron deficiency anemia matt marshall to inadequate dietary iron intake 10/15/2017 0 Assessment & Plan (08/05/2018 11:46 AM ROTARY SOIL STABILIZER OPERATOR): Iron panel normal in June. Lab her follow-up in 6 months with repeat CBC and iron panel Assessment & Plan (11/28/2017 10:39 AM CDT): Will order venofer. May discontinue oral iron as she is not tolerating it due to her hx of srinivasan's. We will call her once this is set up for her. Assessment & Plan (10/15/2017 9:00 AM CDT): Was anemic in hospital. Has hx of anemia. Will recheck cbc and iron studies today BMI 39.0-39.9,adult 10/15/2017 08/06/19 20 Assessment & Plan (02/28/2018 9:26 AM CDT): Obesity is unchanged. Discussed the patient's BMI. The BMI is above average; BMI management plan is completed. General weight loss/lifestyle modification strategies discussed (elicit support from others; identify saboteurs; non-food rewards, etc). Diet= low-carb Limit white bread, rice, pasta, potatoes, juice, energy drinks, coffee creamers with sugar, sugar sodas, candy, cake, cookies, ice cream. Be more careful with starchy vegetables like corn, carrots, and fruits. Stay away from processed foods, fast foods, fried foods. The cornerstone of this diet is lean grilled meats, green salads or cooked greens, fat-free milk, cottage cheese, nuts like clqqmuw-ucyruwy-kavpfzw, protein bars with 10-15 g of protein and 20-30 g of carbohydrate. Choose whole grain breads and pastas, brown rice, sweet potatoes, read onions--these whole grains absorb more slowly thus blood sugar does not surge so high so quickly. Avoid drinking juice, eat a piece of fruit instead. Assessment & Plan (01/17/2018 1:18 PM CDT): Obesity is unchanged. Discussed the patient's BMI. The BMI is above average; BMI management plan is completed. Diet interventions: low calorie (1000 kCal/d) deficit diet.Diet= low-carb Limit white bread, rice, pasta, potatoes, juice, energy drinks, coffee creamers with sugar, sugar sodas, candy, cake, cookies, ice cream. Be more careful with starchy vegetables like corn, carrots, and fruits. Stay away from processed foods, fast foods, fried foods. The cornerstone of this diet is lean grilled meats, green salads or cooked greens, fat-free milk, cottage cheese, nuts like szptaxw-xplhtrb-hgtzfhm, protein bars with 10-15 g of protein and 20-30 g of carbohydrate. Choose whole grain breads and pastas, brown rice, sweet potatoes, read onions--these whole grains absorb more slowly thus blood sugar does not surge so high so quickly. Avoid drinking juice, eat a piece of fruit instead. Assessment & Plan (10/15/2017 9:02 AM CDT): BMI Follow-up includes: nutrition counseling - states she's been to nutrition counseling with her before and they have been changing their diet.. False positive stress test 10/07/2017 0 11/28/2017 Assessment & Plan (10/07/2017 2:16 PM CDT): Lexiscan showing equivocal reversible defect. Will have cardiac catheterization per Cardiology recommendation tomorrow. Acute diastolic (congestive) heart failure 10/04/2017 02/04/2020 Assessment & Plan (11/28/2017 10:40 AM CDT): No current signs of heart failure. Stress tests have been negative. Cleared by cardiology. Heart function normal. Will discontinue lasix for now. She will call if she has any problems after discontinuing. Assessment & Plan (10/15/2017 8:59 AM CDT): She is feeling much better. Breathing has improved. Her heart rate is still low, goes up and down. Recommended continuing to hold the toprol xl as long as her heart rate remains below 51. I referred her to Dr. Rucker at [facility] and gave her his office number to see if she can get in any sooner with him. Assessment & Plan (10/07/2017 2:17 PM CDT): Per chest x-ray patient has a central vascular congestion. Per echocardiogram her EF is normal and there is no diastolic dysfunction of the heart. I suspect her central vascular congestion is related to diastolic dysfunction and or pulmonary hypertension. Patient is on diuretic now, will see if she will respond to the treatment. I am going to hold her diuretics for tomorrow due scheduled cardiac catheterization. Neurologic disorder associat ed with type 2 diabetes mellitus 02/03/2014 02/04/2020 Overview (10/11/2016): Neurologic disorder associated with type 2 diabetes mellitus Essential hypertension 02/03/201408/05 Overview (10/11/2016): Essential hypertension Assessment & Plan (01/27/2018 9:18 AM CDT): Hypertension is improving with treatment. Continue current medications. Blood pressure will be reassessed at the next regular appointment. Assessment & Plan (01/17/2018 1:21 PM CDT): Hypertension is unchanged. Continue current treatment regimen. Blood pressure will be reassessed in 3 months. Continue Losartan Lifestyle changes can help you control and prevent high blood pressure, even if you're taking blood pressure medication. Here's what you can do: Eat healthy foods. Eat a healthy diet. Try the Dietary Approaches to Stop Hypertension (DASH) diet, which emphasizes fruits, vegetables, whole grains, poultry, fish and low-fat dairy foods. Get plenty of potassium, which can help prevent and control high blood pressure. Eat less saturated fat and trans fat. Decrease the salt in your diet. A lower sodium level -- 1,500 milligrams (mg) a day -- is appropriate for people 51 years of age or older, and individuals of any age who are black or who have hypertension, diabetes or chronic kidney disease. Maintain a healthy weight. Keeping a healthy weight, or losing weight if you're overweight or obese, can help you control your high blood pressure and lower your risk of related health problems. If you're overweight, losing even 5 pounds (2.3 kilograms) can lower your blood pressure. Increase physical activity. Regular physical activity can help lower your blood pressure, manage stress, reduce your risk of several health problems and keep your weight under control. Limit alcohol. Even if you're healthy, alcohol can raise your blood pressure. If you choose to drink alcohol, do so in moderation. For healthy adults, that means up to one drink a day for women of all ages and men older than age 65, and up to two drinks a day for men age 65 and younger. One drink equals 12 ounces of beer, 5 ounces of wine or 1.5 ounces of 80-proof liquor. Don't smoke. Tobacco injures blood vessel eldridge and speeds up the process of hardening of the arteries. If you smoke, ask your doctor to help you quit. Manage stress. Reduce stress as much as possible. Practice healthy coping techniques, such as muscle relaxation, deep breathing or meditation. Getting regular physical activity and plenty of sleep can help, too. Notify the office for blood pressure greater than 130/80 Assessment & Plan (10/04/2017 5:54 PM CDT): Blood pressure is uncontrolled. Currently on losartan 100 mg daily, Lasix for diastolic dysfunction added, Toprol-XL will be added. 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 Weight loss. Continue current medications. Blood pressure will be reassessed 6 months. Assessment & Plan (01/31/2017 8:15 AM CDT): Hypertension is improving with treatment. Continue current treatment regimen. Weight loss. Blood pressure will be reassessed 6 months Continue losartan . Flatulence, eructation and gas pain 02/03/2014 01/31/2017 Overview (10/11/2016): Flatulence, eructation and gas pain Hyperlipidemia 04/01/2012 08/05/2018 Overview (10/10/2016): Hyperlipidemia Assessment & Plan (01/27/2018 9:17 AM CDT): Lipid abnormalities are improving with treatment. Pharmacotherapy as ordered. Lipids will be reassessed will recheck lipid panel today. Assessment & Plan (07/18/2017 2:04 PM ROTARY SOIL STABILIZER OPERATOR): due for lab work - Assessment & Plan (01/31/2017 8:16 AM CDT): Lipid abnormalities are improving with treatment. Pharmacotherapy as ordered. Lipids will be reassessed in 6 months. Srinivasan's esophagus 12/31/2011 08/28/19 20 Overview (10/12/2016): Barretts esophagus Assessment & Plan (06/16/2018 1:48 PM ROTARY SOIL STABILIZER OPERATOR): No sx on current doseof omeprazol. Reviewed prior pathology and EGD reports and advised continue ppi and plan on EGD 03/27. Also c/o bloat and alternating C/D so advised she is due for screening colonoscopy and she will schedule after the holidays. Encounters Date Type Department Care Team Description 03/29/[address] [facility] Primary Care at [place] [address] [place] [phone] Renu Nova MD Medical Question/Miscellan eous; Call Back 03/03/2025 9:21 AM CDT Anesthesia Event [address] [id number] Feliberto Mckeon MD 03/03/2025 9:00 AM CDT - 03/03/2025 9:30 AM CDT Surgery [address] [address] Eden Reynolds MD SIGMOID BIOPSY 03/03/2025 7:50 AM CDT - 03/03/2025 10:19 AM CDT Hospital Encounter [address] [address] Eden Reynolds MD Bleeding internal hemorrhoids Discharge Disposition: Discharge to home or self care 02/23/[address] [facility] Medical [facility] Gastroenterology at [place] [address] [place] [phone] [place], [place] 01/27/2025 2:00 PM CDT Office Visit [facility] Primary Care at [address] [phone] Renu Nova MD Hypertension, essential (Primary Dx); Type 2 diabetes mellitus without complication, without long-term current use of insulin (HCC); Anxiety and depression; Class 3 severe obesity due to excess calories with serious comorbidity and body mass index (BMI) of 40.0 to 44.9 in adult; Dysuria; Encounter for wellness examination 01/20/2025 11:50 AM CDT Lab [address] Type 2 diabetes mellitus without complication, without long-term current use of insulin (HCC) 01/20/2025 Results Follow-Up [facility] Primary Care at [address] [phone] Renu Nova MD Hemoglobin A1c from Last 3 Months Immunizations Immunization Administration Dates Next Due Influenza LAIV (Nasal) 09/21/2024(Deferr ed: Patient Refused),01/16/2022(Deferred: Patient Refused),04/07/2021(Deferred: Patient Refused),04/07/2021(Deferred: Patient Refused) Influenza, Unspecified 06/08/2024(Deferr ed: Patient Refused),04/26/2024(Deferred: Patient Refused),04/26/2024(Deferred: Patient Refused),04/26/2023(Deferred: Patient Refused),04/26/2023(Deferred: Patient Refused),04/26/2023(Deferred: Patient Refused),11/06/2022(Deferred: Patient Refused),09/26/2022(Deferred: Patient Refused),04/02/2022(Deferred: Patient Refused),02/05/2022(Deferred: Patient Refused),02/05/2022(Deferred: Patient Refused),01/27/2021(Deferred: Patient Refused),04/07/2019(Deferred: Other - Unable to contact patient),07/18/2017(Deferred: Patient Refused) Tdap 02/23/2019 Surgical History Surgery Date Site/Laterality Comments CHOLECYSTECTOMY 07/08/1988 - 07/07/1989 Cholecystectomy OTHER SURGICAL HISTORY 07/08/2008 - 07/07/2009 cyst: R oophorectomy APPENDECTOMY Appendectomy OTHER SURGICAL HISTORY 07/08/1996 - 07/07/1997 Fibroids: SIMA(HAS OVARIES) CHOLECYSTECTOMY Cholecystectomy CHOLECYSTECTOMY 07/08/1983 - 07/07/1984 HYSTERECTOMY 07/08/1997 - 07/07/1998 OOPHORECTOMY 07/08/2010 - 07/07/2011 EYE SURGERY 07/08/2005 - 07/07/2006 COLONOSCOPY 04/12/2020 UPPER GASTROINTESTINAL ENDOSCOPY CATARACT EXTRACTION Bilateral SIGMOIDOSCOPY 03/03/2025 Medical History Medical History Date Comments Hypertension Hypertension Diabetes Neuropathy Arthritis Glaucoma Sleep apnea Srinivasan esophagus GERD (gastroesophageal reflux disease) Type 2 diabetes mellitus Hyperlipidemia Asthma Chronic constipation 02/27/2021 Family History Medical History Relation Name Comments Crohn's disease Brother 3 Crohn's dise ase; Coronary artery disease Brother 4 Haleigh nary artery disease, premature; Cause of : Coronary artery disease, premature Diabetes type II Brother 5 Diabetes -T ype 2; Coronary artery disease Brother 6 Haleigh nary artery disease, premature; Hypertension Brother 7 Hypertension; Coronary artery disease Father Haleigh nary artery disease, premature; Diabetes Father Diabetes mellit us; Diabetes type II Father Diabetes -T ype 2; Hypertension Father Hypertension; Kidney disease Father Renal disease ; Other Father macular degenra tion; /MACULAR DEGEN; Peripheral vascular disease Father Peripheral vascular disease; Breast cancer Mother Cancer -breast ; Cause of : Cancer -breast/Cancer, breast; Diabetes Mother Diabetes mellit us; Diabetes type II Mother Diabetes -T ype 2; Macular degeneration Mother macular degeneration; Thyroid disease Mother Thyroid diso rder; Other Mother's Sister No history o f Cancer, breast; metastatic bile duct carcinoma Son Relation Name Status Comments Brother 1 (Age 43) Brother 2 Alive Brother 3 Brother 4 Brother 5 Brother 6 Brother 7 Father Mother (Age 62) Mother's Sister Son Social History Tobacco Use Types Packs/Day Years Used Date Smoking Tobacco: Former Cigarettes 1 32 0 07/08/1981 - 07/07/2013 Passive Smoke Exposure: Past Smokeless Tobacco: Never Tobacco Cessation:Counseling Given: Not Answered Comments:Smoking History Packs/day: 1 Packs Alcohol Use Standard Drinks/Week Comments [...] on file Legal Sex Female 8:50 AM ROTARY SOIL STABILIZER OPERATOR Gender Identity Not on file Sexual Orientation Not on file Obstetrics History Last Filed Vital Signs Vital Sign Reading Time Taken Comments Blood Pressure 164/75 03/03/2025 10:08 AM CDT Pulse 72 03/03/2025 10:08 AM CDT Temperature 36.1 C (97 F) 03/03/2025 10:08 AM CDT Respiratory Rate 16 03/03/2025 10:08 AM CDT Oxygen Saturation 100% 03/03/2025 10:08 AM CDT Inhaled Oxygen Concentration - - Weight 94.3 kg (208 lb) 03/03/2025 8:17 AM CDT Height 149.9 cm (4' 11) 03/03/2025 8:17 AM CDT Body Mass Index 42.01 03/03/2025 8:17 AM CDT Plan of Treatment Health Maintenance Due Date Last Done Comments Lung Cancer Screening 2019 Breast Cancer Screening-Mammogram 02/03/2022 02/03/2021, 09/08/2019, 01/17/2018 Influenza Vaccine (#1) 2025 Pneumococcal vaccine <65 (1 of 2 - PCV) 05/24/2025 Postponed from 01/05/1988 (Patient declined, but will receive in the future) Albumin Creatinine Ratio, Urine 05/29/2025 05/29/2024, 10/30/2022, 01/16/2022, Additional history exists eGFR 05/29/2025 05/29/2024, 10/07, 05/27/2022, Additional history exists Foot Exam 06/08/2025 06/08/2024, 05/09, 01/16/2022, Additional history exists Regular Well Visit/Exam 18-64 06/08/2025 06/08/2024, 05/27/2023, 02/01/2022 Zoster Vaccine (1 of 2) 06/08/2025 Post poned from 2019 (Patient declined, but will receive in the future) Hemoglobin A1C 07/23/2025 01/20/2025, 05/0 07/2024, 05/29/2024, Additional history exists Lipid Panel 09/17/2025 09/17/2024, 05/09, 12/17/2023, Additional history exists Depression Screening 01/27/2026 01/27/2025, 11/09/2024, 09/21/2024, Additional history exists Dilated Eye Exam 02/12/2027 02/12/2025, 02/2025, 08/21/2024, Additional history exists DTaP/Tdap/Td Vaccine (3 - Td or Tdap) 02/23/2029 02/23/2019, 07/08/2010 Colon Cancer Screening-Colonoscopy 04/12/2030 04/12/2020 Hepatitis B Screening Completed 05/29/2024 Hepatitis C Screening Completed 05/29/2024 Colon Cancer Screening-CT Colonography Discontinued 03/03/2025, 03/27/2021, 04/12/2020 Colon Cancer Screening-DNA Stool Discontinued 03/03/2025, 03/27/2021, 04/12/2020 Colon Cancer Screening-FIT Discontinued 03/03, 03/27/2021, 04/12/2020 Colon Cancer Screening-Sigmoidoscopy Discontinued 03/03/2025, 03/27/2021, 04/12/2020 Procedures Procedure Name Priority Date/Time Associated Diagnosis Comments SURGICAL PATHOLOGY STAT 03/03/2025 2: 32 PM CDT Bleeding internal hemorrhoids INFRARED COAGULATION OF HEMORRHOIDS 03/03/2025 9:15 AM CDT Bleeding internal hemorrhoids SIGMOID BIOPSY 03/03/2025 9:15 AM CDT Bleeding internal hemorrhoids POCT GLUCOSE DEVICE Routine 03/03/2025 8 :37 AM CDT FLEXIBLE SIGMOIDOSCOPY 03/03/2025 8:07 AM CDT DIABETIC EYE EXAM Routine 02/12/2025 DIABETIC EYE EXAM Routine 02/12/2025 POCT URINALYSIS, AUTO W/O SCOPE Routine 01/27/2025 1:59 PM CDT Dysuria HEMOGLOBIN A1C Routine 01/20/2025 11:49 AM CDT Type 2 diabetes mellitus without complication, without long-term current use of insulin (HCC) LIPID PANEL Routine 09/17/2024 11:06 AM CDT Elevated triglycerides with high cholesterol HEPATITIS C ANTIBODY Routine 05/29/2024 8:24 AM ROTARY SOIL STABILIZER OPERATOR Need for hepatitis C screening test EGFR Routine 05/29/2024 8:24 AM ROTARY SOIL STABILIZER OPERATOR Type 2 diabetes mellitus without complication, without long-term current use of insulin (HCC) ALBUMIN CREATININE RATIO, URINE Routine 05/29/2024 8:24 AM ROTARY SOIL STABILIZER OPERATOR Type 2 diabetes mellitus without complication, without long-term current use of insulin (HCC) HM MAMMOGRAPHY Routine 02/03/2021 2:59 PM CDT COLONOSCOPY 04/12/2020 10:51 AM CDT from Last 3 Months or Most Recently Relevant to Health Maintenance Results * Surgical pathology (03/03/2025 2:32 PM CDT) Tissue (Colon, Biopsy) 03/03/2025 9:35 AM CDT Narrative PATHOLOGY [facility] ([facility]) - 03/04/2025 11:59 AM CDT EPIC results best viewed via link to PDF [facility] Department of Pathology [address] [place], [place] [id number] Note to Patients: This report may contain a detailed description of human tissue sent by a health care provider to the laboratory for pathologic evaluation. The content of this report is essential for diagnosis and may provide important critical findings. This information may be unfamiliar to patients to review without a medical professional present. It is advised that the patient review this report in the presence of a health care provider who can answer questions and explain the details. Final Report Patient Name: BEN GARCIA Address: [address] [place] [address] Gender: F : 1970 (Age: 55) Service: Gastro Location: [facility] Hospital #: [id number] Patient Type: [facility] Taken: 03/03/2025 Received: 03/03/2025 Accessioned: 03/03/2025 Reported: 03/04/2025 Physician(s):Dr. [place] Reynolds M.D. Diagnosis: A. Rectum, congestive mucosa, endoscopic biopsy- Fragments of benign colonic mucosa demonstrating minimal congestion and regenerative features Enedina Gonzalez M.D. Report Electronically Reviewed and Signed Out By Enedina Gonzalez M.D. 03/04/2025 11:59:27 Specimen(s) Received: A: Rectal biopsy Microscopic Description: Microscopic examination corroborates the diagnosis. Clinical History: Bleeding internal hemorrhoids. Sigmoid biopsy. Gross Description: The specimen is submitted in a single formalin filled container labeled BEN GARCIA and rectum biopsy. It is 4 rock tissue fragments measuring 2 mm. All in one cassette. Krael Putnam R.N., P.A./Enedina Gonzalez M.D. REPORT IMAGES AND SCANNED DOCUMENTS, IF INCLUDED, ONLY VIEWABLE IN PDF VERSION OF REPORT The performance characteristics of some immunohistochemical stains, fluorescence in-situ hybridization tests and immunophenotyping by flow cytometry cited in this report (if any) were determined by the Surgical Pathology Department at [facility] as part of an ongoing aerospace quality engineer program and in compliance with federally mandated regulations drawn from the Clinical Laboratory Improvement Act of 1988 (CLIA '88). Some of these tests rely on the use of analyte specific reagents and are subject to specific labeling requirements by the US Food and Drug Administration. Such diagnostic tests may only be performed in a facility that is certified by the Department of Health and Human Services as a high complexity laboratory under CLIA '88. The FDA has determined that such clearance or approval is not necessary. This test is used for clinical purposes. It should not be regarded as investigational or for research. Nevertheless, federal rules concerning the medical use of analyte specific reagents require that the following disclaimer be attached to the report: This test was developed and its performance characteristics determined by the Surgical Pathology Department [facility]. It has not been cleared or approved by the U. S. Food and Drug Administration. Note for decalcified specimens: This assay has not been validated on decalcified tissues. Results should be interpreted with caution given the possibility of false negativity on decalcified specimens Eden Reynolds MD LAB PATHOLOGY ORDERABLES F inal Result PATHOLOGY [facility]) [address] [place] [id number] * POCT glucose (03/03/2025 8:37 AM CDT) Glucose, POC 100 70 - 199 mg/dL Blood 03/03/2025 8:37 AM CDT 03/03/2025 8:37 AM CDT Eden Reynolds MD LAB POCT ORDERABLES - ILDA CE Final Result Performing Organization Address [facility]/ZIP Co de Phone Number [facility]) [address] [place] [address] Department [place] [address] * Flexible Sigmoidoscopy (03/03/2025 8:07 AM CDT) Anatomical Region Laterality Modality Other Narrative Procedure Note Eden Reynolds MD - 03/03/2025 8:07 AM CDT [facility] Patient Name: Ben Garcia Procedure Date: 03/03/2025 8:07 AM Date of : 1970 Admit Type: Outpatient Age: 55 Gender: Female Attending MD: [place] Reynolds M.D., Room: [facility] ENDOSCOPY ROOM 1 Note Status: Finalized Patient Profile: This is a 55 year old female. Patient complained of recurrent episodes of bright red bleeding perrectum. In the past she was treated for hemorrhoidsbleeding. Procedure: Flexible Sigmoidoscopy Indications: Rectal hemorrhage Referring MD: Renu Scott M.D. Providers: [place] Reynolds M.D. Impression: - Diverticulosis in the sigmoid colon. - Erythematous mucosa in the rectum likely nonspecific. Biopsied. - Internal hemorrhoids. Treated with thermaltherapy. Recommendation: - Continue present medications. - Continue stool softener use daily. - Use lvuu-nby-bykoqwr fiber supplements daily Medicines: Monitored Anesthesia Care Complications: No immediate complications. Procedure: Pre-Anesthesia Assessment: - Prior to the procedure, a History and Physicalwas performed, and patient medications and allergieswere reviewed. The patient's tolerance of previous anesthesia was also reviewed. The risks andbenefits of the procedure and the sedation options and risks were discussed with the patient. All questions were answered, and informed consent was obtained. Prior Anticoagulants: The patient has taken noanticoagulant or antiplatelet agents. ASA Grade Assessment: Per anesthesia note and evaluation. After reviewing the risks and benefits, the patient was deemed in satisfactory condition to undergo the procedure. The benefits, risks, and alternatives to theprocedure and sedation were discussed and informed consentwas obtained. The Endoscope [id number]-[id number] was introduced through the anus and advanced to the the descending colon. The flexible sigmoidoscopy was accomplished without difficulty. The patienttolerated the procedure well. The quality of the bowel preparation was fair. Findings: The perianal and digital rectal examinations were normal. No anal fissure noted. Many small-mouthed diverticula were found in the sigmoid colon. No inflammatory changes noted in the sigmoid colon or descendingcolon. A localized area of mildly erythematous mucosa was found in therectum. Biopsies were taken with a cold forceps for histology. Internal hemorrhoids were found during retroflexion. The hemorrhoids were small in the congestive. Coagulation to prevent future bleedingof internal hemorrhoids using IRC (Infrared Coagulation) wassuccessful. Electronically signed by Eden Reynolds M.D. Eden Reynolds M.D. 03/03/2025 9:49:44 AM Number of Addenda: 0 Note Initiated On: 03/03/2025 8:07 AM Procedure Code(s): --- Professional --- 31253, Destruction of internal hemorrhoid(s) by thermal energy (eg, infrared coagulation, cautery, radiofrequency) 97167, Sigmoidoscopy, flexible; with biopsy, single or multiple --- Technical --- 69609, Destruction of internal hemorrhoid(s) by thermal energy (eg, infrared coagulation, cautery, radiofrequency) 13258, Sigmoidoscopy, flexible; with biopsy, single or multiple Diagnosis Code(s): --- Professional --- K64.8, Other hemorrhoids K62.89, Other specified diseases of anus and rectum K62.5, Hemorrhage of anus and rectum K57.30, Diverticulosis of large intestine without perforation orabscess without bleeding --- Technical --- K64.8, Other hemorrhoids K62.89, Other specified diseases of anus and rectum K62.5, Hemorrhage of anus and rectum K57.30, Diverticulosis of large intestine without perforation orabscess without bleeding CPT copyright 2022 [employer]. All rights reserved. The codes documented in this report are preliminary and upon train driver reviewmay be revised to meet current compliance requirements. Recognized by the [employer] for promoting quality in endoscopy us Eden Reynolds MD ENDOSCOPY PROCEDURES Final Result * Diabetic Eye Exam (02/12/2025) Generic External Data Provider HEALTH MAINTENANC E Final Result * Diabetic Eye Exam (02/12/2025) Generic External Data Provider HEALTH MAINTENANC E Final Result * POCT UA, AUTO W/O SCOPE (01/27/2025 1:59 PM CDT) Color, Urine, POC Light Yellow Clarity, ur, POC Clear Clear Glucose, ur, POC Negative Negative Bilirubin, ur, POC Negative Negative Ketones, ur, POC Negative Negative Specific [place], POC 1.010 1.003 - 1.030 Blood, ur, POC Negative Negative pH, ur, POC 7.0 5.0 - 8.0 Protein, ur, POC Negative Negative Urobilinogen, Urine, POC 0.2 <2 MG/DL Leukocytes, ur, POC Negative Negative Nitrite, ur, POC Negative Negative Appearance, fld Clear Clear Urine, clean voided 01/27/2025 1:59 PM CDT Result [facility] Renu Scott MD POINT OF CARE TEST OR DERABLES Final Result * (ABNORMAL) Hemoglobin A1c (01/20/2025 11:49 AM CDT) Hgb A1C 6.3(H) 4.0 - 5.6 % YANIQUE WEBBER (GILLIAM) Estimated Average Glucose 134 mg/dL YANIQUE WEBBER (MARCOS) Comment: The ADA recommends reporting an estimated Average Glucose (eAG) with all Hemoglobin A1c results using the equation derived from a study of 507 normal and diabetic adults. Minority populations were underrepresented and children were not included. (Diabetes Care 31:3899-3962, 2008). The eAG is not equivalent to a fasting glucose. Testing performed by: [facility], [facility], [place], [address] Blood 01/20/2025 11:4 9 AM CDT 01/20/2025 1:46 PM CDT us Renu Scott MD LAB BLOOD ORDERABLES Final Result YANIQUE AKBAR (MARCOS) 1 [facility] [place] [address] * (ABNORMAL) Lipid panel (09/17/2024 11:06 AM CDT) Cholesterol 136 30 - 199 mg/dL Comment: Interpretive Data Ages < or = 19 years Acceptable: <170 mg/dL Borderline high: 170-199 mg/dL High: >or= 200 mg/dL Ages > or = 20 years Desirable: <200 mg/dL Borderline high: 200-239 mg/dL High: >or= 240 mg/dL Literature References: 1. Expert Panel on Integrated Guidelines for Cardiovascular Health and Risk Reduction in Children and Adolescents. Pediatrics 2011;128:S213 2. NCEP Expert Panel. Circulation 2004;110:227 Current Interpretive Data was last revised on 2018. Triglycerides 390(H) <=149 mg/dL YANIQUE WEBBER (MARCOS) Comment: Interpretive Data Ages < or = 9 years Acceptable: <75 mg/dL Borderline high: 75-99 mg/dL High: >or= 100 mg/dL Ages 10 to 20 years Acceptable: <90 mg/dL Borderline high: 90-129 mg/dL High: >or= 130 mg/dL Ages > or = 20 years Desirable: <150 mg/dL Borderline high: 150-199 mg/dL High: 200-499 mg/dL Very high: >or= 499 mg/dL Literature References: 1. Expert Panel on Integrated Guidelines for Cardiovascular Health and Risk Reduction in Children and Adolescents. Pediatrics 2011;128:S213 2. NCEP Expert Panel. Circulation 2004;110:227 Current Interpretive Data was last revised on 2018. HDL 27(L) >=40 mg/dL YANIQUE WEBBER (MARCOS) Comment: Interpretive Data Ages < or = 19 years Acceptable: >45 mg/dL Borderline low: 40-45 mg/dL Low: <40 mg/dL Ages > or = 20 years Desirable: >or= 60 mg/dL Low: <40 mg/dL Literature References: 1. Expert Panel on Integrated Guidelines for Cardiovascular Health and Risk Reduction in Children and Adolescents. Pediatrics 2011;128:S213 2. NCEP Expert Panel. Circulation 2004;110:227 Current Interpretive Data was last revised on 2018. LDL, calculated 50 <=129 mg/dL YANIQUE WEBBER (MARCOS) Comment: Interpretive Data Ages < or = 19 years Acceptable: <110 mg/dL Borderline high: 110-129 mg/dL High: >or= 130 mg/dL Ages > or = 20 years Optimal: <100 mg/dL Near optimal: 100-129 mg/dL Borderline high: 130-159 mg/dL High: >160 mg/dL Calculated using the Sukhdev LDL-C estimating equation. This equation was implemented on 2024. Prior to this date LDL-C was estimated using the Friedewald equation. Literature References: 1. Expert Panel on Integrated Guidelines for Cardiovascular Health and Risk Reduction in Children and Adolescents. Pediatrics 2011;128:S213 2. NCEP Expert Panel. Circulation 2004;110:227 3. Sukhdev Rich et al. DENISE Cardiol. 2019November 05;5(5):540-548. doi: 10.1001/jamacardio.2020.0013 Current Interpretive Data was last revised on 2024. Non-HDL Cholesterol 109 mg/dL YANIQUE WEBBER (MARCOS) Comment: Interpretive Data Ages < or = 19 years Acceptable: <120 mg/dL Borderline high: 120-144 mg/dL High: >145 mg/dL Ages > or = 20 years When triglycerides are >200 mg/dL, Non-HDL cholesterol is a secondary target of therapy with treatment goals that are 30 mg/dL greater than the LDL cholesterol target. Literature References: 1. Expert Panel on Integrated Guidelines for Cardiovascular Health and Risk Reduction in Children and Adolescents. Pediatrics 2011;128:S213 2. NCEP Expert Panel. Circulation 2004;110:227 Current Interpretive Data was last revised on 2018. Chol/HDL ratio 5 ELDON WEBBER (MARCOS) Blood 09/17/2024 11:0 6 AM CDT 09/17/2024 1:29 PM CDT Renu Scott MD LAB BLOOD ORDERABLES Final Result Performing Organization Address City/[facility] Co de Phone Number YANIQUE WEBBER (MARCOS) 1 [facility] [place] [address] * eGFR (05/29/2024 8:24 AM ROTARY SOIL STABILIZER OPERATOR) eGFR >90 >=60 mL/min/1. 73 m2 Comment: Interpretive Data Reference Interval Normal >/= 90 mL/min/1.73m2 Mildly decreased* 60 - 89 mL/min/1.73m2 Mildly to moderately decreased 45 - 59 mL/min/1.73m2 Moderately to severely decreased 30 - 44 mL/min/1.73m2 Severely decreased 15 - 29 mL/min/1.73m2 Kidney Failure < 15 mL/min/1.73m2 *Relative to young adult level Estimated glomerular filtration rate is determined by the 2020 CKD-EPI equation recommended by the National Kidney Foundation (A Unifying Approach to GFR Estimation: Recommendations of the NKF-ASK Task Force on Reassessing the Inclusion of Race in Diagnosing Kidney Disease, JASN 2020). The CKD-EPI equation should not be used for patients with unstable renal function and has not been validated in children and those over 70. Current interpretive data was last reviewed 2021. Blood 05/29/2024 8:24 AM ROTARY SOIL STABILIZER OPERATOR 05/29/2024 11:33 AM ROTARY SOIL STABILIZER OPERATOR Renu Scott MD LAB BLOOD ORDERABLES Final Result Performing Organization Address [facility] Co de Phone Number YANIQUE DOHERTY) 1 [facility] Department [employer] [place] [address] * Hepatitis C antibody Blood (05/29/2024 8:24 AM ROTARY SOIL STABILIZER OPERATOR) Hep C Ab Nonreactive Nonreactive Comment: Interpretive Data Nonreactive: Antibodies to HCV not detected. Does NOT exclude the possibility of recent exposure to HCV. Equivocal: Equivocal for HCV antibodies. Supplemental molecular testing will be automatically performed to determine infection status in accordance with current CDC screening recommendations. Reactive: Positive for HCV antibodies. This may represent current or past HCV infection. Supplemental molecular testing will be automatically performed to determine current infection status in accordance with current CDC screening recommendations. Interpretive data was last revised on 2019. Testing performed by: [facility], [address] [place] [address]., [id number] Blood 05/29/2024 8:24 AM ROTARY SOIL STABILIZER OPERATOR 05/29/2024 4:43 PM ROTARY SOIL STABILIZER OPERATOR Narrative [facility] (MARCOS) - 05/29/2024 5:17 PM ROTARY SOIL STABILIZER OPERATOR Fasting Fasting Renu Scott MD LAB MICROBIOLOGY - GE NERAL ORDERABLES Final Result YANIQUE WEBBER (MARCOS) 1 [facility] [place] [address] * (ABNORMAL) Albumin Creatinine Ratio, Urine (05/29/2024 8:24 AM ROTARY SOIL STABILIZER OPERATOR) Albumin Ur 43.8 mg/L Comment: Interpretive Data No reference range established. Current interpretive data was last revised 2018. Testing performed by: [facility], [address] [place] [address]., [id number] Creatinine Ur 48.9 mg/dL [facility] (MARCOS) Comment: Interpretive Data No reference range established. Current interpretive data was last revised 2018. Testing performed by: [facility], [address] [place] [address]., [id number] Albumin Creatinine Ratio, Ur 90(H) 1 - 29 mg/g [facility] (MARCOS) Comment:Testing performed by : [facility], [address] [place] [address]., [id number] Urine 05/29/2024 8:24 AM ROTARY SOIL STABILIZER OPERATOR 05/29/2024 4:46 PM ROTARY SOIL STABILIZER OPERATOR Narrative [facility] (MARCOS) - 05/29/2024 5:26 PM ROTARY SOIL STABILIZER OPERATOR Fasting Fasting Renu Scott MD LAB URINE ORDERABLES Final Result YANIQUE WEBBER (MARCOS) 1 [facility] Department [employer] [place] [address] * HM MAMMOGRAPHY (02/03/2021 2:59 PM CDT) us Historical Provider [facility] Edited Result - Final * COLONOSCOPY (04/12/2020 10:51 AM CDT) Anatomical Region Laterality Modality Other Narrative Procedure Note Eden Reynolds MD - 04/12/2020 10:51 AM CDT [facility] Patient Name: Ben Garcia Procedure Date: 04/12/2020 10:51 AM Date of : 1970 Admit Type: Outpatient Age: 50 Gender: Female Attending MD: Eden Reynolds M.D. Room: [facility] ENDOSCOPY ROOM 1 Note Status: Finalized Patient Profile: This is a 50 year old female. No family history of colon cancer. She does have episodes of rectal or hemorrhoid pain and rarely blood when she wiped the tissue Procedure: Colonoscopy Indications: Screening for colorectal malignant neoplasm, This is the patient's first colonoscopy Referring MD: Gina Alexis, F.N.P. Providers: Eden Reynolds M.D. Impression: - Diverticulosis in the sigmoid colon. - Two 2 to 4 mm polyps in the distal sigmoid colon, removed with a jumbo cold forceps. Resected and retrieved. - Internal hemorrhoids. Recommendation: - Await pathology results. - Repeat colonoscopy in 5 years for screeningpurposes. - Take fiber supplements daily. - Trial of Analpram HC cream 2.5% per rectum for hemorrhoids. - Continue present medications. Medicines: Monitored Anesthesia Care Complications: No immediate complications. Estimated Blood Loss: Estimated blood loss: none. Procedure: Pre-Anesthesia Assessment: - Prior to the procedure, a History and Physical was performed, and patient medications and allergieswere reviewed. The patient's tolerance of previous anesthesia was also reviewed. The risks and benefitsof the procedure and the sedation options and riskswere discussed with the patient. All questions were answered, and informed consent was obtained. Prior Anticoagulants: The patient has taken no previous anticoagulant or antiplatelet agents. ASA Grade Assessment: II - A patient with mild systemicdisease. After reviewing the risks and benefits, the patientwas deemed in satisfactory condition to undergo the procedure. The benefits, risks and alternatives of theprocedure and sedation were discussed and informed consent was obtained. All questions were answered. Please referto the signed informed consent document in the medical record. Bowel prep was administered using a splitdose. The bowel preparation used was Miralax. The bowel preparation used was bisacodyl tablets. The scopewas passed under direct vision. The PediatricColonoscope [id number]-[id number] was introduced through the anusand advanced to the the cecum, identified by appendiceal orifice and ileocecal valve. The quality of thebowel preparation was excellent. Findings: The perianal and digital rectal examinations were normal. The cecum appeared normal. The ascending colon appeared normal. The transverse colon appeared normal. The descending colon appeared normal Multiple small-mouthed diverticula were found in the sigmoid colon. Two semi-sessile polyps were found in the distal sigmoid colon. The polyps were 2 to 4 mm in size. These polyps were removed with a jumbo cold forceps. Resection and retrieval were complete. Internal hemorrhoids were found during retroflexion. The hemorrhoids were medium-sized. Electronically signed by Eden Reynolds M.D. Eden Reynolds M.D. 04/12/2020 12:08:48 PM Number of Addenda: 0 Note Initiated On: 04/12/2020 10:51 AM Procedure Code(s): --- Professional --- 67115, Colonoscopy, flexible; with biopsy, single or multiple Diagnosis Code(s): --- Professional --- Z12.11, Encounter for screening for malignant neoplasm of colon K64.8, Other hemorrhoids D12.5, Benign neoplasm of sigmoid colon K57.30, Diverticulosis of large intestine without perforation orabscess without bleeding CPT copyright 2017 [employer]. All rights reserved. The codes documented in this report are preliminary and upon train driver reviewmay be revised to meet current compliance requirements. Recognized by the [place] [employer] for promoting quality in endoscopy Eden Reynolds MD ENDOSCOPY PROCEDURES Final Result from Last 3 Months or Most Recently Relevant to Health Maintenance Insurance [employer]ETNA SIG [id number] [facility] 9 Advance Directives For more information, please contact: [phone] * Full Code (Latest Code Status on File) Date Activated Date Inactivated Comments 03/03/2025 8:10 AM 03/03/2025 2:24 PM * Full Code Date Activated Date Inactivated Comments 03/03/2025 8:10 AM 03/03/2025 8:10 AM * Full Code Date Activated Date Inactivated Comments 04/06/2022 2:11 PM 04/06/2022 10:26 PM * Full Code Date Activated Date Inactivated Comments 03/27/2021 1:25 PM 03/27/2021 7:09 PM * Full Code Date Activated Date Inactivated Comments 04/12/2020 10:21 AM 04/12/2020 5:16 PM Care Teams Nursing Home Director Relationship Specialty Start Date End Date Renu Scott MD [address] [place] [address] [place] [address] PCP - General Family Medicine 11/26/23 Aldo Kan MD Consulting Physician Cardiology 10/09/17 Elo Mcmahan NP Registered Nurse Pulmonary Disease 12/13/21
--- OUTSIDE RECORDS SUMMARY | 2025-04-29 08:13 | XMS_ITS | Clinical Summary ---
Author Organization [facility] Address [address] [place] [address] Phone Care Team Providers Care Oil Field Pipeline Supervisor Name Role Phone Renu Scott MD Primary Care Provide r Medications amitriptyline (ELAVIL) 25 MG Tablet Take 25 mg by mouth nightly. Active Active Problems Problem Noted Date Diagnosed Date Grief 08/27/2023 Major depressive disorder, r ecurrent episode, severe with anxious distress 01/27/2018 Encounters Date Type Department Care Team Description 04/07/2025 11:30 AM CDT Outpatient Clinic Visit [facility] [address] [place] [phone] Jennifer Galdamez LCSW Grief (Primary Dx); [...] Upcoming Encounters Date Type Department Care Team (Latest Contact Info) Description 04/29/2025 2:45 PM CDT Outpatient Clinic Visit [facility] [address] [place] [phone] Jennifer Galdamez LCSW [address] [place] [address] Discharge Disposition: Discharged to home or Selfcare Health Maintenance Due Date Last Done Comments [...] Immunization (#1) 2025 SARS-COV-2 Immunization ( - 2024- season) 2025 Colonoscopy 04/12/2030 04/12/2020 Colorectal Cancer [...] Ready to change Department associated with goal: [facility] Steps to achieve goal: [...] in managing problematic responses to grief. Insurance [facility] Care Teams Oil Field Pipeline Supervisor Relationship Specialty Start Date End Date Renu Scott MD [address] [place] [address] [address] [place] [id number] PCP - General Family Medicine 12/16/23
[2025-05-25 11:46] VITALS: BMI 41.2
--- NOTE | 2025-05-25 11:46 | WPDSLEEPSTUD ---
Sleep Study Date of Study: 04/29/25 Ordering Provider: Kwaku Knapp Interpreting Physician: Portia Padilla DO Sleep Study Type: Polysomnogram Height: 1.5 m Weight: 92.533 kg Body Mass Index: 41.2 Neck Circumference (inches): 23 [place]: 2 Reason for Sleep Study Difficulty falling asleep Sleep History The patient is a 55-year-old female that had a sleep study ordered by her supervisor burling and joining for evaluation of sleep apnea. The patient was diagnosed with sleep apnea in September of 2013. She has had difficulty tolerating PAP therapy due to claustrophobia. The patient rarely awakens from sleep short of breath. She rarely awakens at night with heartburn, belching or cough. she denies snoring. She rarely has trouble sleeping when she has a cold. She denies waking up gasping for air throughout the night. She denies having breathing problems at night observed by herself or others. She rarely sweats excessively at night. She occasionally has heart palpitations or irregular heartbeats during the night. She rarely falls asleep during the day but never while driving. She occasionally experiences loss of muscle tone when extremely emotional. She denies having trouble at school or work due to sleepiness. She denies sleep paralysis. She occasionally experiences vivid dreamlike scenes upon awakening or falling asleep. She denies feeling afraid of going to sleep. She frequently has nightmares. She occasionally remembers her dreams. She frequently has thoughts racing through her mind. She constantly feels sad, depressed and anxious. She frequently has muscular tension. She occasionally notices parts of her body jerk. She denies kicking during the night. She occasionally has crawling and aching feelings in her legs and constantly has leg pain during the night. She denies grinding her teeth during sleep and denies awakening with morning jaw pain. She is constantly bothered by pain during the day and occasionally awakened by pain during the night. She frequently wakes up feeling stiff in the morning. She constantly wakes up with sore or achy muscles. She constantly wakes up with pain in the neck, spine and other joints. She goes to bed between 2:23 a.m. every night. Sometimes she is unable to fall asleep. She wakes up 1-2 times throughout the night for unknown reasons and the amount of time it takes for her to fall back asleep is variable. She wakes up at 10:00 a.m. every morning. She will stay in bed this long as she can when she wakes up in the morning. She currently lives with her . She denies consuming any caffeinated beverages within 2 hours of bedtime. She denies engaging in physical exercise before bedtime. She denies reading before falling asleep. She denies watching television before falling asleep. She denies taking naps in the afternoon or the evening. She denies consuming any caffeinated beverages throughout the day. She quit smoking cigarettes 15 years ago. She denies alcohol and recreational drug use. REPLACED BY [facility] Past Medical History Medical History High cholesterol Hypertension Arriaga esophagus Diabetes History of blood clots Surgical History Surgical History H/O eye surgery H/O ovarian cystectomy History of cholecystectomy H/O: hysterectomy Family History Family History Father , age 72 Diabetes mellitus Acute myocardial infarction Hypertension Mother , age 62 Breast cancer Sibling , age 44 Heart disease Sibling Diabetes mellitus Social History Social History Smoking packs per day: 1 Smoking cigarettes per day: 20.0 Years smoked: 25 Smoking pack-years: 25.00 Smoking status: Former smoker Tobacco type: cigarettes Second hand tobacco smoke exposure: No Smoking end date: 07/08/11 Alcohol intake: never Substance use: never Substance use type: does not use Living arrangements: with family Occupation/Education: unemployed Spiritual care concerns: No Medications Home Medications ?Medication ?Instructions ?Recorded ?Confirmed ?Type atorvastatin 10 mg tablet 40 mg PO DAILY 12/28/20 03/31/24 History latanoprost 0.005 % eye drops 1 drp EACH EYE DAILY 12/28/20 03/31/24 History metformin 500 mg tablet 500 mg PO BID 12/28/20 03/31/24 History vitamins A,C,A-wrqh-kqwdqi 4,296 1 cap PO BID 12/28/20 03/31/24 History mcg-226 mg-90 mg capsule (PreserVision AREDS) amitriptyline 25 mg tablet 50 mg PO HS 03/31/24 03/31/24 History docusate sodium 100 mg capsule 200 mg PO DAILY 03/31/24 03/31/24 History (Colace) omeprazole 40 mg capsule,delayed 40 mg PO DAILY 03/31/24 03/31/24 History release valsartan 320 mg tablet 320 mg PO DAILY 03/31/24 03/31/24 History Sleep Procedure A full night polysomnogram using the [employer] multi-channel system recorded the standard physiologic parameters including EEG, EOG, submentalis EMG, anterior tibialis EMG, EKG, body position, nasal and oral airflow using nasal pressure sensor and thermistor.? Respiratory parameters of chest and abdominal movements were recorded with Respiratory Inductance Plethysmography belts. Oxygen saturation was recorded by pulse oximetry. Video monitoring was also performed. Sleep stages, periodic limb movements, and EEG arousals were scored in 30 second epochs according to the criteria of the AASM Scoring Manual. The Apnea-Hypopnea Index was calculated using CMS guidelines for definition of hypopnea with 4% O2 desaturations while scoring respiratory events. Sleep Architecture The total recording time was 419.4 minutes.? The total sleep time was 99.5 minutes. Sleep latency was 137.6 minutes. REM latency was 272.0 minutes. Sleep efficiency was 23.7%. The patient had 35 awakenings for an awakening index of 21.1. Wake after sleep onset time was 182.0 minutes. The patient spent 36.5 minutes, 36.7% of total sleep time in Stage N1. The patient spent 60.5 minutes, 60.8% in Stage N2. The patient spent 2.0 minutes, 2.0% in Stage N3. The patient spent 0.5 minutes, 0.5% in Stage REM sleep. Respiratory Analysis The patient had 73 hypopneas for an overall Apnea Hypopnea Index of 44.0. The REM Apnea Hypopnea Index was 0. The NREM Apnea Hypopnea Index was 44.2. The patient had a Central Apnea Hypopnea Index of 0. There was no evidence of Konstantin-Bennett Respirations. Arousals There were 139 total arousals for an arousal index of 83.8. There were 36 spontaneous arousals for an index of 21.7. There were 76 arousals due to respiratory events for an index of 45.8. There were 11 arousals due to periodic limb movements for an index of 6.6.? There were 17 arousals due to isolated limb movements for an index of 10.3. Periodic Limb Movements The patient had 31 isolated limb movements with an index of 18.7. The patient had 14 periodic limb movements with an index of 8.4. Patient had a total of 45 limb movements with a total limb movement index of 27.1. Oximetry Data The patient had an average oxygen saturation of 88.7% in sleep with a minimum oxygen saturation of 83.0% and a maximum oxygen saturation of 95.0%. The patient had 79 oxygen desaturations that were 4% or greater resulting in an Oxygen Desaturation Index of 47.6.? The patient spent 91.2 minutes, 22.5% of total sleep time with an oxygen saturation below 88%. Snoring Profile Mild snoring was present throughout the study. Cardiac Profile The EKG showed normal sinus rhythm with occasional PVCs. The patient had an average pulse rate of 70.5 bpm with a minimum pulse of rate of 51.0 bpm and a maximum pulse rate of 83.0 bpm.? EEG Profile No signs of seizure activity seen. Assessment and Plan Assessment and Plan (1) AMY (obstructive sleep apnea): Code(s): G47.33 - Obstructive sleep apnea (adult) (pediatric) Status: Acute Assessment and Plan: The patient had an overall AHI of 44.0 with desaturation down to 83%. This is consistent with severe sleep apnea. The patient spent 91.2 minutes, 22.5% of total recording time with an oxygen saturation below 88%. I recommend the patient a CPAP titration with the use of a hypnotic or anxiolytic to ensure we obtain sleep data find an optimal pressure setting. The patient had a sleep latency of 137.6 minutes and a sleep efficiency of 23.7%. She switched to sleeping in a recliner at 3:48 a.m. due to her change in positioning, her sleep apnea and hypoxemia likely improved. The patient's sleep history is somewhat suggestive of Restless Leg Syndrome. I recommend that the patient have a serum ferritin drawn for evaluation of iron deficiency anemia. If the patient has a serum ferritin less than 75 ng/mL, I recommend starting a daily iron supplement and a Vitamin C supplement for better absorption. If the serum ferritin is greater than 75 ng/mL, I recommend starting a dopamine agonist and titrating the dose until symptoms resolve. There are nonpharmacological methods to treat limb movements including daily exercise, stretching calf muscles before bed, avoiding excessive amounts of caffeine and alcohol, vitamin B supplementation, magnesium lotion massaged into legs before bed, and use of a weighted blanket. The patient also mentioned having constant symptoms of anxiety and depression in her sleep history. I recommend that the patient complete a PHQ-9 and DEDE-7 for further evaluation of mood disorders and review the results with her PCP. Data The data obtained during this sleep study is adequate for interpretation. Certification This sleep study has been reviewed by a board certified sleep medicine physician.
== END 2025-04-30 06:11 | disposition home or self-care (01) ==
DX: G47.33 Obstructive sleep apnea (adult) (pediatric) (principal)
CPT/HCPCS: 95810